=== PATIENT | male | born 1975 | race Caucasian/White ===

== ENCOUNTER 2020-07-13 18:01 | Emergency (ER) | payer OTHER ==
[~2020-07-13] VITALS: Wt 139.7 kg
[2020-07-13 18:55] LABS: BASO # 0.1 10*3/uL (0.0-0.1); BASO % 0.8 % (0.0-1.0); EOS # 0.4 10*3/uL (0.0-0.4); EOS % 4.1 % (1.0-4.0); HEMATOCRIT 43.5 % (42.0-52.0); LYMPH # 2.3 10*3/uL (1.3-4.4); LYMPH % 24.5 % (27.0-41.0); MEAN CELL VOLUME 77.1 fl (80.0-94.0); MEAN CORPUSCULAR HGB CONC 29.9 g/dl (33.0-37.0); MEAN PLATELET VOLUME 10.8 fl (9.6-12.3); MONO # 0.6 10*3/uL (0.1-1.0); MONO % 6.7 % (3.0-9.0); NEUT # 5.8 10*3/uL (2.3-7.9); NEUT % 63.4 % (47.0-73.0); PLATELET COUNT AUTOMATED 366 10*3/uL (130-400); RED BLOOD COUNT 5.64 10*6/uL (4.50-5.90); RED CELL DISTRI WIDTH 15.8 % (0-14.5); WHITE BLOOD COUNT 9.2 10*3/uL (4.8-10.8)
[2020-07-13 19:06] LABS: ACT PARTIAL THROMBO TIME 29.4 SECONDS (20.0-32.1)
[2020-07-13 19:12] LABS: ALBUMIN 3.1 gm/dl (3.1-4.5); CREATININE 2.69 mg/dL (0.70-1.30); POTASSIUM 3.2 mmol/L (3.5-5.1); TOTAL PROTEIN 7.2 gm/dL (6.4-8.2)
[2020-07-13 19:23] LABS: TROPONIN I 0.137 ng/ml (<0.045)
== END 2020-07-13 19:02 | disposition short-term general hospital (02) ==
LOC: ED 18:01
PROVIDERS: Emergency Medicine
DX: I21.9 Acute myocardial infarction, unspecified (principal)

== ENCOUNTER 2020-08-14 22:50 | Inpatient (IN) | payer OTHER ==
[~2020-08-14] VITALS: Ht 182.9 cm; Wt 151.1 kg
[2020-08-14 22:53] VITALS: BP 268/159
[2020-08-14] MEDS ORDERED: NITROSTAT0.4 MG SL (23:00)
[2020-08-14] MEDS ORDERED: CLOPIDOGREL75 MG PO (23:00)
[2020-08-14] MEDS ORDERED: NORVASC5 MG PO (23:00)
[2020-08-14] MEDS ORDERED: CARVEDILOL25 MG PO (23:00)
[2020-08-14 23:02] VITALS: BP 215/129
[2020-08-14 23:09] LABS: BASO # 0.1 10*3/uL (0.0-0.1); BASO % 1.2 % (0.0-1.0); EOS # 0.5 10*3/uL (0.0-0.4); EOS % 4.4 % (1.0-4.0); HEMATOCRIT 45.9 % (42.0-52.0); LYMPH # 3.5 10*3/uL (1.3-4.4); LYMPH % 28.6 % (27.0-41.0); MEAN CELL VOLUME 77.5 fl (80.0-94.0); MEAN CORPUSCULAR HGB 22.6 pg (27.0-31.0); MEAN CORPUSCULAR HGB CONC 29.2 g/dl (33.0-37.0); MEAN PLATELET VOLUME 10.3 fl (9.6-12.3); MONO # 0.7 10*3/uL (0.1-1.0); NEUT # 7.2 10*3/uL (2.3-7.9); NEUT % 59.2 % (47.0-73.0); PLATELET COUNT AUTOMATED 407 10*3/uL (130-400); RED BLOOD COUNT 5.92 10*6/uL (4.50-5.90); RED CELL DISTRI WIDTH 17.2 % (0-14.5); WHITE BLOOD COUNT 12.1 10*3/uL (4.8-10.8)
[2020-08-14 23:16] VITALS: BP 176/129
[2020-08-14 23:32] VITALS: BP 165/112
[2020-08-14 23:34] LABS: ALBUMIN 3.4 gm/dl (3.1-4.5); CREATININE 1.97 mg/dL (0.70-1.30); POTASSIUM 4.5 mmol/L (3.5-5.1); TOTAL PROTEIN 7.9 gm/dL (6.4-8.2)
[2020-08-14 23:38] LABS: TROPONIN I 0.234 ng/ml (<0.045)
[2020-08-15] VITALS (11 sets, daily range): BP systolic 129–168; BP diastolic 80–118
[2020-08-15 03:59] LABS: BASO # 0.1 10*3/uL (0.0-0.1); BASO % 0.6 % (0.0-1.0); EOS # 0.1 10*3/uL (0.0-0.4); EOS % 1.5 % (1.0-4.0); HEMATOCRIT 41.8 % (42.0-52.0); LYMPH # 0.8 10*3/uL (1.3-4.4); LYMPH % 8.8 % (27.0-41.0); MEAN CELL VOLUME 77.6 fl (80.0-94.0); MEAN CORPUSCULAR HGB 22.6 pg (27.0-31.0); MEAN CORPUSCULAR HGB CONC 29.2 g/dl (33.0-37.0); MEAN PLATELET VOLUME 10.3 fl (9.6-12.3); MONO # 0.4 10*3/uL (0.1-1.0); MONO % 3.8 % (3.0-9.0); NEUT # 8.2 10*3/uL (2.3-7.9); PLATELET COUNT AUTOMATED 301 10*3/uL (130-400); RED BLOOD COUNT 5.39 10*6/uL (4.50-5.90); RED CELL DISTRI WIDTH 16.7 % (0-14.5); WHITE BLOOD COUNT 9.6 10*3/uL (4.8-10.8)
[2020-08-15 04:19] LABS: ALBUMIN 3.1 gm/dl (3.1-4.5); CREATININE 1.8 mg/dL (0.70-1.30); POTASSIUM 4.6 mmol/L (3.5-5.1); TOTAL PROTEIN 7.1 gm/dL (6.4-8.2)
[2020-08-16] VITALS: BP 162/97
[2020-08-16 04:00] VITALS: BP 139/75
[2020-08-16 08:01] VITALS: BP 130/84
[2020-08-16 08:25] LABS: BASO % 0.4 % (0.0-1.0); EOS # 0.1 10*3/uL (0.0-0.4); HEMATOCRIT 40.4 % (42.0-52.0); LYMPH # 1.4 10*3/uL (1.3-4.4); LYMPH % 13.8 % (27.0-41.0); MEAN CELL VOLUME 78.3 fl (80.0-94.0); MEAN CORPUSCULAR HGB 23.1 pg (27.0-31.0); MEAN CORPUSCULAR HGB CONC 29.5 g/dl (33.0-37.0); MEAN PLATELET VOLUME 10.8 fl (9.6-12.3); MONO # 0.6 10*3/uL (0.1-1.0); MONO % 5.9 % (3.0-9.0); NEUT % 78.4 % (47.0-73.0); PLATELET COUNT AUTOMATED 296 10*3/uL (130-400); RED BLOOD COUNT 5.16 10*6/uL (4.50-5.90); RED CELL DISTRI WIDTH 17.1 % (0-14.5); WHITE BLOOD COUNT 10.2 10*3/uL (4.8-10.8)
[2020-08-16 08:36] LABS: ALBUMIN 2.8 gm/dl (3.1-4.5); CREATININE 1.61 mg/dL (0.70-1.30); POTASSIUM 4.3 mmol/L (3.5-5.1); TOTAL PROTEIN 6.4 gm/dL (6.4-8.2)
[2020-08-16 12:13] VITALS: BP 134/80
[2020-08-16 16:03] VITALS: BP 116/74
[2020-08-16 20:00] VITALS: BP 112/73
[2020-08-17] VITALS: BP 156/90
[2020-08-17 04:00] VITALS: BP 138/89
[2020-08-17 04:20] LABS: BASO % 0.3 % (0.0-1.0); EOS % 0.1 % (1.0-4.0); HEMATOCRIT 40.2 % (42.0-52.0); LYMPH # 1.5 10*3/uL (1.3-4.4); LYMPH % 12.4 % (27.0-41.0); MEAN CELL VOLUME 76.9 fl (80.0-94.0); MEAN CORPUSCULAR HGB 22.8 pg (27.0-31.0); MEAN CORPUSCULAR HGB CONC 29.6 g/dl (33.0-37.0); MEAN PLATELET VOLUME 10.5 fl (9.6-12.3); MONO # 0.7 10*3/uL (0.1-1.0); MONO % 5.7 % (3.0-9.0); NEUT # 9.6 10*3/uL (2.3-7.9); NEUT % 80.8 % (47.0-73.0); PLATELET COUNT AUTOMATED 309 10*3/uL (130-400); RED BLOOD COUNT 5.23 10*6/uL (4.50-5.90); RED CELL DISTRI WIDTH 16.6 % (0-14.5); WHITE BLOOD COUNT 11.8 10*3/uL (4.8-10.8)
[2020-08-17 04:36] LABS: ALKALINE PHOSPHATASE 49 U/L (45-117); BUN 28 mg/dl (7-24); CHLORIDE 108 mmol/L (98-107); CREATININE 1.42 mg/dL (0.70-1.30); LDH 155 U/L (87-241); POTASSIUM 4.3 mmol/L (3.5-5.1); SGOT/AST 19 IU/L (3-35); SGPT/ALT 35 U/L (12-78); SODIUM 142 mmol/L (136-145); TOTAL PROTEIN 6.8 gm/dL (6.4-8.2)
[2020-08-17 04:37] LABS: CPK 41 U/L (39-308)
[2020-08-17 08:00] VITALS: BP 151/88
[2020-08-17] MEDS ORDERED: LISINOPRIL2.5 MG PO (10:59)
[2020-08-17] MEDS ORDERED: FUROSEMIDE40 MG PO (10:59)
[2020-08-17] MEDS ORDERED: ATORVASTATIN CA80 M1 PO (10:59)
[2020-08-17] MEDS ORDERED: ASPIRIN ADULT L81 M2 PO (10:59)
[2020-08-17] MEDS ORDERED: DOXYCYCLINE100 M3 PO ×2 (10:59)
[2020-08-17] MEDS ORDERED: PREDNISONE10 MG PO ×2 (10:59)
[2020-08-17] MEDS ORDERED: COREG12.5 M1 PO (10:59)
== END 2020-08-17 12:50 | disposition home or self-care (01) | DRG 720 ==
LOC: ED 22:50 → ICCU 08-15 01:51 → EDHOLD 08-15 01:51 → ICCU 08-15 02:26
PROVIDERS: Family Medicine; Internal Medicine; ADMIT Student in an Organized Health Care Education/Training Program; ATTEND Student in an Organized Health Care Education/Training Program
PROC: 5A09357 Assistance with Respiratory Ventilation, Less than 24 Consecutive Hours, Continuous Positive Airway Pressure (ICD-10-PCS; principal; 2020-08-15)
DX: A41.9 Sepsis, unspecified organism (principal); I21.A1 Myocardial infarction type 2; J18.9 Pneumonia, unspecified organism; N17.0 Acute kidney failure with tubular necrosis; J96.01 Acute respiratory failure with hypoxia; E44.0 Moderate protein-calorie malnutrition; R73.9 Hyperglycemia, unspecified; R65.20 Severe sepsis without septic shock; D50.9 Iron deficiency anemia, unspecified; I25.10 Atherosclerotic heart disease of native coronary artery without angina pectoris; E83.41 Hypermagnesemia; I25.5 Ischemic cardiomyopathy; I16.1 Hypertensive emergency; T50.996A Underdosing of other drugs, medicaments and biological substances, initial encounter; D47.3 Essential (hemorrhagic) thrombocythemia; E87.8 Other disorders of electrolyte and fluid balance, not elsewhere classified; I50.23 Acute on chronic systolic (congestive) heart failure; Z20.828 Contact with and (suspected) exposure to other viral communicable diseases; E66.01 Morbid (severe) obesity due to excess calories; I13.0 Hypertensive heart and chronic kidney disease with heart failure and stage 1 through stage 4 chronic kidney disease, or unspecified chronic kidney disease; N18.9 Chronic kidney disease, unspecified; Z88.5 Allergy status to narcotic agent; Z85.89 Personal history of malignant neoplasm of other organs and systems; Z83.3 Family history of diabetes mellitus; Z82.49 Family history of ischemic heart disease and other diseases of the circulatory system; I25.2 Old myocardial infarction; Z79.899 Other long term (current) drug therapy; Z79.02 Long term (current) use of antithrombotics/antiplatelets; Z95.5 Presence of coronary angioplasty implant and graft; Y92.89 Other specified places as the place of occurrence of the external cause; Z91.14 Patient's other noncompliance with medication regimen; Z72.0 Tobacco use; Z71.6 Tobacco abuse counseling; Z68.41 Body mass index [BMI] 40.0-44.9, adult

== ENCOUNTER 2020-09-10 02:57 | Emergency (ER) | payer OTHER ==
[~2020-09-10] VITALS: Ht 182.8 cm; Wt 145.1 kg
[~2020-09-10 02:57] MED LIST: ASPIRIN ADULT L81 M2 PO; ATORVASTATIN CA80 M1 PO; CARVEDILOL25 MG PO; CLOPIDOGREL75 MG PO; COREG12.5 M1 PO; DOXYCYCLINE100 M3 PO; FUROSEMIDE40 MG PO; LISINOPRIL2.5 MG PO; NITROSTAT0.4 MG SL; NORVASC5 MG PO; PREDNISONE10 MG PO
[2020-09-10 03:30] LABS: BASO # 0.1 10*3/uL (0.0-0.1); BASO % 0.5 % (0.0-1.0); EOS # 0.1 10*3/uL (0.0-0.4); EOS % 0.9 % (1.0-4.0); HEMATOCRIT 44.4 % (42.0-52.0); LYMPH # 1.1 10*3/uL (1.3-4.4); LYMPH % 8.4 % (27.0-41.0); MEAN CORPUSCULAR HGB 22.6 pg (27.0-31.0); MEAN CORPUSCULAR HGB CONC 30.2 g/dl (33.0-37.0); MEAN PLATELET VOLUME 9.7 fl (9.6-12.3); MONO # 0.3 10*3/uL (0.1-1.0); MONO % 2.4 % (3.0-9.0); NEUT % 86.5 % (47.0-73.0); PLATELET COUNT AUTOMATED 337 10*3/uL (130-400); RED BLOOD COUNT 5.92 10*6/uL (4.50-5.90); RED CELL DISTRI WIDTH 17.7 % (0-14.5); WHITE BLOOD COUNT 12.7 10*3/uL (4.8-10.8)
[2020-09-10 03:46] LABS: ALBUMIN 3.4 gm/dl (3.1-4.5); ALKALINE PHOSPHATASE 62 U/L (45-117); BUN 22 mg/dl (7-24); CHLORIDE 108 mmol/L (98-107); CREATININE 1.45 mg/dL (0.70-1.30); SGOT/AST 20 IU/L (3-35); SGPT/ALT 27 U/L (12-78); SODIUM 139 mmol/L (136-145); TOTAL PROTEIN 7.5 gm/dL (6.4-8.2)
== END 2020-09-10 05:01 | disposition home or self-care (01) ==
LOC: ED 02:57
PROVIDERS: Internal Medicine
DX: I11.0 Hypertensive heart disease with heart failure (principal); I50.21 Acute systolic (congestive) heart failure; N17.9 Acute kidney failure, unspecified; R71.8 Other abnormality of red blood cells; Z88.5 Allergy status to narcotic agent; Z79.899 Other long term (current) drug therapy; Z79.82 Long term (current) use of aspirin; Z95.5 Presence of coronary angioplasty implant and graft; Z98.890 Other specified postprocedural states

== ENCOUNTER 2020-09-30 02:48 | Emergency (ER) | payer OTHER ==
[~2020-09-30] VITALS: Wt 140.6 kg
[2020-09-30 03:14] LABS: BASO # 0.1 10*3/uL (0.0-0.1); BASO % 0.7 % (0.0-1.0); EOS # 0.3 10*3/uL (0.0-0.4); EOS % 3.1 % (1.0-4.0); LYMPH # 1.7 10*3/uL (1.3-4.4); LYMPH % 17.1 % (27.0-41.0); MEAN CELL VOLUME 74.9 fl (80.0-94.0); MEAN CORPUSCULAR HGB 22.5 pg (27.0-31.0); MEAN PLATELET VOLUME 9.9 fl (9.6-12.3); MONO # 0.6 10*3/uL (0.1-1.0); MONO % 6.4 % (3.0-9.0); NEUT % 72.3 % (47.0-73.0); PLATELET COUNT AUTOMATED 330 10*3/uL (130-400); RED BLOOD COUNT 5.74 10*6/uL (4.50-5.90); RED CELL DISTRI WIDTH 16.7 % (0-14.5); WHITE BLOOD COUNT 9.7 10*3/uL (4.8-10.8)
[2020-09-30 03:36] LABS: ACT PARTIAL THROMBO TIME 29.3 SECONDS (20.0-32.1)
[2020-09-30 03:38] LABS: ALBUMIN 3.2 gm/dl (3.1-4.5); CREATININE 1.74 mg/dL (0.70-1.30); POTASSIUM 3.2 mmol/L (3.5-5.1); TOTAL PROTEIN 7.4 gm/dL (6.4-8.2)
[2020-09-30 03:41] LABS: TROPONIN I 0.261 ng/ml (<0.045)
== END 2020-09-30 05:58 | disposition short-term general hospital (02) ==
LOC: ED 02:48
PROVIDERS: Emergency Medicine
DX: I21.3 ST elevation (STEMI) myocardial infarction of unspecified site (principal); I50.9 Heart failure, unspecified; I11.0 Hypertensive heart disease with heart failure; I25.2 Old myocardial infarction; F17.200 Nicotine dependence, unspecified, uncomplicated; Z88.6 Allergy status to analgesic agent; Z79.899 Other long term (current) drug therapy

== ENCOUNTER 2020-11-21 20:57 | Inpatient (IN) | payer OTHER ==
[~2020-11-21] VITALS: Ht 182.8 cm; Wt 149.5 kg
[2020-11-21 21:10] LABS: BASO # 0.1 10*3/uL (0.0-0.1); EOS # 0.3 10*3/uL (0.0-0.4); EOS % 2.7 % (1.0-4.0); HEMATOCRIT 42.9 % (42.0-52.0); LYMPH # 2.2 10*3/uL (1.3-4.4); LYMPH % 18.3 % (27.0-41.0); MEAN CELL VOLUME 74.4 fl (80.0-94.0); MEAN CORPUSCULAR HGB 22.2 pg (27.0-31.0); MEAN CORPUSCULAR HGB CONC 29.8 g/dl (33.0-37.0); MEAN PLATELET VOLUME 10.1 fl (9.6-12.3); MONO # 0.8 10*3/uL (0.1-1.0); MONO % 6.6 % (3.0-9.0); NEUT # 8.6 10*3/uL (2.3-7.9); NEUT % 70.6 % (47.0-73.0); PLATELET COUNT AUTOMATED 325 10*3/uL (130-400); RED BLOOD COUNT 5.77 10*6/uL (4.50-5.90); RED CELL DISTRI WIDTH 17.2 % (0-14.5); WHITE BLOOD COUNT 12.2 10*3/uL (4.8-10.8)
[2020-11-21 21:14] VITALS: BP 143/95
[2020-11-21] MEDS ORDERED: LISINOPRIL40 MG PO (21:19)
[2020-11-21] MEDS ORDERED: METOPROLOL SUCC50 M1 PO (21:20)
[2020-11-21 21:21] LABS: ACT PARTIAL THROMBO TIME 29.2 SECONDS (20.0-32.1)
[2020-11-21] MEDS ORDERED: METFORMIN HYDR500 MG PO (21:21)
[2020-11-21] MEDS ORDERED: ASPIRIN CHEWABL81 MG PO (21:22)
[2020-11-21] MEDS ORDERED: VITAMIN D3125 MCG PO (21:23)
[2020-11-21] MEDS ORDERED: FISH OIL 1,0001 EAC2 PO (21:24)
[2020-11-21] MEDS ORDERED: QUETIAPINE FUM100 M2 PO (21:24)
[2020-11-21 21:28] LABS: ALBUMIN 3.5 gm/dl (3.1-4.5); CREATININE 1.77 mg/dL (0.70-1.30); TOTAL PROTEIN 7.9 gm/dL (6.4-8.2)
[2020-11-21 21:30] LABS: TROPONIN I 0.071 ng/ml (<0.045)
[2020-11-21 22:26] VITALS: BP 155/103
[2020-11-21 22:49] VITALS: BP 137/87
[2020-11-21 23:49] VITALS: BP 129/72
[2020-11-22 01:13] VITALS: BP 127/70
[2020-11-22] MEDS ORDERED: LIPITOR80 MG PO (01:17)
[2020-11-22] MEDS ORDERED: PROTONIX IV40 MG IV (01:20)
[2020-11-22] MEDS ORDERED: Clopidogrel75 MG PO (01:21)
[2020-11-22] MEDS ORDERED: LASIX40 MG PO (02:00)
[2020-11-22 06:12] LABS: BASO # 0.1 10*3/uL (0.0-0.1); BASO % 0.9 % (0.0-1.0); EOS # 0.3 10*3/uL (0.0-0.4); EOS % 3.7 % (1.0-4.0); LYMPH # 1.7 10*3/uL (1.3-4.4); LYMPH % 19.7 % (27.0-41.0); MEAN CELL VOLUME 76.2 fl (80.0-94.0); MEAN CORPUSCULAR HGB 22.5 pg (27.0-31.0); MEAN CORPUSCULAR HGB CONC 29.5 g/dl (33.0-37.0); MEAN PLATELET VOLUME 10.4 fl (9.6-12.3); MONO # 0.7 10*3/uL (0.1-1.0); MONO % 8.3 % (3.0-9.0); NEUT # 5.8 10*3/uL (2.3-7.9); NEUT % 66.6 % (47.0-73.0); PLATELET COUNT AUTOMATED 287 10*3/uL (130-400); RED BLOOD COUNT 5.25 10*6/uL (4.50-5.90); RED CELL DISTRI WIDTH 16.9 % (0-14.5); WHITE BLOOD COUNT 8.6 10*3/uL (4.8-10.8)
[2020-11-22 06:32] LABS: ALBUMIN 3.2 gm/dl (3.1-4.5); CREATININE 1.94 mg/dL (0.70-1.30); POTASSIUM 4.4 mmol/L (3.5-5.1); TOTAL PROTEIN 7.2 gm/dL (6.4-8.2)
[2020-11-22 06:34] LABS: FREE T4 0.84 ng/dl (0.76-1.46)
[2020-11-22 06:42] LABS: THYROID STIM HORMONE (HS) 1.91 uIU/ml (0.358-4.75)
[2020-11-22 07:40] LABS: FERRITIN 15.5 ng/mL (22.0-322.0); VITAMIN D, 25-HYDROXY 29.4 ng/mL (30-100)
[2020-11-22 08:00] VITALS: BP 125/77
[2020-11-22 12:00] VITALS: BP 128/61
[2020-11-22 16:00] VITALS: BP 108/40
[2020-11-22 20:00] VITALS: BP 116/65
[2020-11-23] VITALS: BP 90/76
[2020-11-23 03:42] LABS: BASO # 0.1 10*3/uL (0.0-0.1); BASO % 0.9 % (0.0-1.0); EOS # 0.3 10*3/uL (0.0-0.4); EOS % 4.2 % (1.0-4.0); HEMATOCRIT 40.1 % (42.0-52.0); LYMPH # 1.9 10*3/uL (1.3-4.4); LYMPH % 24.3 % (27.0-41.0); MEAN CELL VOLUME 76.7 fl (80.0-94.0); MEAN CORPUSCULAR HGB 22.4 pg (27.0-31.0); MEAN CORPUSCULAR HGB CONC 29.2 g/dl (33.0-37.0); MONO # 0.7 10*3/uL (0.1-1.0); MONO % 9.3 % (3.0-9.0); NEUT # 4.7 10*3/uL (2.3-7.9); NEUT % 60.4 % (47.0-73.0); PLATELET COUNT AUTOMATED 260 10*3/uL (130-400); RED BLOOD COUNT 5.23 10*6/uL (4.50-5.90); RED CELL DISTRI WIDTH 16.5 % (0-14.5); WHITE BLOOD COUNT 7.8 10*3/uL (4.8-10.8)
[2020-11-23 03:55] LABS: CREATININE 1.8 mg/dL (0.70-1.30); POTASSIUM 4.2 mmol/L (3.5-5.1)
[2020-11-23 08:00] VITALS: BP 116/47
[2020-11-23 12:00] VITALS: BP 145/78
[2020-11-23 16:00] VITALS: BP 100/63
[2020-11-23 20:00] VITALS: BP 117/66
[2020-11-24] VITALS: BP 114/64
[2020-11-24 06:12] LABS: ALBUMIN 3.2 gm/dl (3.1-4.5); CREATININE 1.65 mg/dL (0.70-1.30); POTASSIUM 4.1 mmol/L (3.5-5.1); TOTAL PROTEIN 7.2 gm/dL (6.4-8.2)
[2020-11-24 06:40] LABS: BASO # 0.1 10*3/uL (0.0-0.1); BASO % 0.8 % (0.0-1.0); EOS # 0.4 10*3/uL (0.0-0.4); EOS % 4.3 % (1.0-4.0); HEMATOCRIT 40.2 % (42.0-52.0); LYMPH # 1.7 10*3/uL (1.3-4.4); LYMPH % 18.5 % (27.0-41.0); MEAN CELL VOLUME 75.7 fl (80.0-94.0); MEAN CORPUSCULAR HGB 22.6 pg (27.0-31.0); MEAN CORPUSCULAR HGB CONC 29.9 g/dl (33.0-37.0); MEAN PLATELET VOLUME 10.6 fl (9.6-12.3); MONO # 0.7 10*3/uL (0.1-1.0); NEUT # 6.1 10*3/uL (2.3-7.9); NEUT % 67.6 % (47.0-73.0); PLATELET COUNT AUTOMATED 276 10*3/uL (130-400); RED BLOOD COUNT 5.31 10*6/uL (4.50-5.90); RED CELL DISTRI WIDTH 16.4 % (0-14.5); WHITE BLOOD COUNT 9.1 10*3/uL (4.8-10.8)
[2020-11-24 08:00] VITALS: BP 116/68
[2020-11-24 12:00] VITALS: BP 118/63
[2020-11-24 16:00] VITALS: BP 142/80
[2020-11-24 20:00] VITALS: BP 145/56
[2020-11-25] VITALS: BP 86/55
[2020-11-25 06:28] LABS: CREATININE 1.8 mg/dL (0.70-1.30); POTASSIUM 4.1 mmol/L (3.5-5.1)
[2020-11-25 08:00] VITALS: BP 102/60
[2020-11-25 10:10] LABS: CREATININE 2.06 mg/dL (0.70-1.30); POTASSIUM 4.2 mmol/L (3.5-5.1)
[2020-11-25 12:00] VITALS: BP 110/59
[2020-11-25 16:00] VITALS: BP 122/78
[2020-11-25 20:00] VITALS: BP 92/54
[2020-11-26] VITALS: BP 92/54
[2020-11-26 06:36] LABS: BASO # 0.1 10*3/uL (0.0-0.1); BASO % 0.9 % (0.0-1.0); EOS # 0.4 10*3/uL (0.0-0.4); EOS % 4.2 % (1.0-4.0); HEMATOCRIT 40.1 % (42.0-52.0); LYMPH % 20.6 % (27.0-41.0); MEAN CELL VOLUME 77.6 fl (80.0-94.0); MEAN CORPUSCULAR HGB 22.4 pg (27.0-31.0); MEAN CORPUSCULAR HGB CONC 28.9 g/dl (33.0-37.0); MEAN PLATELET VOLUME 10.4 fl (9.6-12.3); MONO # 0.9 10*3/uL (0.1-1.0); MONO % 9.4 % (3.0-9.0); NEUT # 6.2 10*3/uL (2.3-7.9); NEUT % 64.1 % (47.0-73.0); PLATELET COUNT AUTOMATED 278 10*3/uL (130-400); RED BLOOD COUNT 5.17 10*6/uL (4.50-5.90); RED CELL DISTRI WIDTH 16.7 % (0-14.5); WHITE BLOOD COUNT 9.7 10*3/uL (4.8-10.8)
[2020-11-26 06:54] LABS: CREATININE 1.85 mg/dL (0.70-1.30); POTASSIUM 4.8 mmol/L (3.5-5.1); TOTAL PROTEIN 7.2 gm/dL (6.4-8.2)
[2020-11-26 08:00] VITALS: BP 96/51
[2020-11-26 12:00] VITALS: BP 108/64
[2020-11-26 16:00] VITALS: BP 93/53
[2020-11-26 20:00] VITALS: BP 90/54
[2020-11-27] VITALS: BP 117/58
[2020-11-27] MEDS ORDERED: COMBIVENT RESPIM4 GM INH (01:53)
[2020-11-27 06:50] LABS: CREATININE 1.73 mg/dL (0.70-1.30); POTASSIUM 4.9 mmol/L (3.5-5.1)
[2020-11-27 08:00] VITALS: BP 128/88
[2020-11-27] MEDS ORDERED: Zestril,Prinivi40 MG PO (10:02)
[2020-11-27] MEDS ORDERED: IMDUR SA30 MG PO (10:02)
[2020-11-27] MEDS ORDERED: METOPROLOL SUC100 M1 PO (10:02)
[2020-11-27 12:00] VITALS: BP 134/80
== END 2020-11-27 15:02 | disposition short-term general hospital (02) | DRG 190 ==
LOC: ED 20:57 → EDHOLD 23:42 → 5E 23:42
PROVIDERS: Hospitalist; Internal Medicine; Registered Nurse; ADMIT Family Medicine; ATTEND Family Medicine
DX: I21.4 Non-ST elevation (NSTEMI) myocardial infarction (principal); D50.9 Iron deficiency anemia, unspecified; I50.22 Chronic systolic (congestive) heart failure; N18.32 Chronic kidney disease, stage 3b; F17.220 Nicotine dependence, chewing tobacco, uncomplicated; K21.9 Gastro-esophageal reflux disease without esophagitis; I25.5 Ischemic cardiomyopathy; E11.22 Type 2 diabetes mellitus with diabetic chronic kidney disease; I25.10 Atherosclerotic heart disease of native coronary artery without angina pectoris; I13.0 Hypertensive heart and chronic kidney disease with heart failure and stage 1 through stage 4 chronic kidney disease, or unspecified chronic kidney disease; E87.8 Other disorders of electrolyte and fluid balance, not elsewhere classified; E11.65 Type 2 diabetes mellitus with hyperglycemia; E44.0 Moderate protein-calorie malnutrition; J44.9 Chronic obstructive pulmonary disease, unspecified; E78.2 Mixed hyperlipidemia; Z95.5 Presence of coronary angioplasty implant and graft; Z91.19 Patient's noncompliance with other medical treatment and regimen; Z88.5 Allergy status to narcotic agent; Z82.49 Family history of ischemic heart disease and other diseases of the circulatory system; I25.2 Old myocardial infarction; Z83.3 Family history of diabetes mellitus; Z79.82 Long term (current) use of aspirin; Z79.84 Long term (current) use of oral hypoglycemic drugs

== ENCOUNTER 2021-09-28 03:31 | Inpatient (IN) | payer OTHER ==
[~2021-09-28 03:31] MED LIST changes: +ASPIRIN CHEWABL81 MG PO; +COMBIVENT RESPIM4 GM INH; +Clopidogrel75 MG PO; +FISH OIL 1,0001 EAC2 PO; +IMDUR SA30 MG PO; +LASIX40 MG PO; +LIPITOR80 MG PO; +LISINOPRIL40 MG PO; +METFORMIN HYDR500 MG PO; +METOPROLOL SUC100 M1 PO; +METOPROLOL SUCC50 M1 PO; +PROTONIX IV40 MG IV; +QUETIAPINE FUM100 M2 PO; +VITAMIN D3125 MCG PO; +Zestril,Prinivi40 MG PO
[2021-09-28 03:48] VITALS: BP 142/84
[2021-09-28 04:04] LABS: BASO # 0.1 10*3/uL (0.0-0.1); BASO % 0.7 % (0.0-1.0); EOS # 0.2 10*3/uL (0.0-0.4); EOS % 2.4 % (1.0-4.0); HEMATOCRIT 40.7 % (42.0-52.0); LYMPH # 1.8 10*3/uL (1.3-4.4); LYMPH % 19.8 % (27.0-41.0); MEAN CELL VOLUME 70.2 fl (80.0-94.0); MEAN CORPUSCULAR HGB 19.5 pg (27.0-31.0); MEAN CORPUSCULAR HGB CONC 27.8 g/dl (33.0-37.0); MEAN PLATELET VOLUME 9.2 fl (9.6-12.3); MONO % 10.7 % (3.0-9.0); NEUT % 65.6 % (47.0-73.0); PLATELET COUNT AUTOMATED 297 10*3/uL (130-400); RED CELL DISTRI WIDTH 20.5 % (0-14.5); WHITE BLOOD COUNT 9.1 10*3/uL (4.8-10.8)
[2021-09-28 04:15] VITALS: BP 143/89
[2021-09-28 04:20] LABS: ALBUMIN 3.3 gm/dl (3.1-4.5); CREATININE 1.61 mg/dL (0.70-1.30); POTASSIUM 3.8 mmol/L (3.5-5.1); TOTAL PROTEIN 7.5 gm/dL (6.4-8.2)
[2021-09-28 06:01] VITALS: BP 143/102
[2021-09-28 07:30] VITALS: BP 132/70
[2021-09-28] MEDS ORDERED: ATORVASTATIN CA20 M1 PO (08:09)
[2021-09-28] MEDS ORDERED: POTASSIUM CHLO10 ME5 PO (08:10)
[2021-09-28] MEDS ORDERED: METOPROLOL SUCC50 M1 PO (08:10)
[2021-09-28] MEDS ORDERED: FUROSEMIDE40 MG PO (08:10)
[2021-09-28 11:30] VITALS: BP 154/90
== END 2021-09-28 13:38 | disposition left against medical advice (07) | DRG 198 ==
LOC: ED 03:31 → EDHOLD 06:59
PROVIDERS: Internal Medicine; ADMIT Emergency Medicine; ATTEND Emergency Medicine
DX: R07.89 Other chest pain (principal); I13.0 Hypertensive heart and chronic kidney disease with heart failure and stage 1 through stage 4 chronic kidney disease, or unspecified chronic kidney disease; E11.22 Type 2 diabetes mellitus with diabetic chronic kidney disease; N18.31 Chronic kidney disease, stage 3a; E44.0 Moderate protein-calorie malnutrition; I50.9 Heart failure, unspecified; I25.5 Ischemic cardiomyopathy; F32.A Depression, unspecified; D50.9 Iron deficiency anemia, unspecified; E78.5 Hyperlipidemia, unspecified; F17.210 Nicotine dependence, cigarettes, uncomplicated; R77.8 Other specified abnormalities of plasma proteins; E87.8 Other disorders of electrolyte and fluid balance, not elsewhere classified; I34.0 Nonrheumatic mitral (valve) insufficiency; Z68.42 Body mass index [BMI] 45.0-49.9, adult; E66.01 Morbid (severe) obesity due to excess calories; K21.9 Gastro-esophageal reflux disease without esophagitis; I25.2 Old myocardial infarction; Z83.3 Family history of diabetes mellitus; Z82.49 Family history of ischemic heart disease and other diseases of the circulatory system; Z88.6 Allergy status to analgesic agent; Z86.73 Personal history of transient ischemic attack (TIA), and cerebral infarction without residual deficits; Z79.82 Long term (current) use of aspirin; Z79.899 Other long term (current) drug therapy; Z95.5 Presence of coronary angioplasty implant and graft; Z71.6 Tobacco abuse counseling

== ENCOUNTER 2022-01-19 23:06 | Inpatient (IN) | payer OTHER ==
[~2022-01-19] VITALS: Ht 182.8 cm; Wt 167.8 kg
[~2022-01-19 23:06] MED LIST changes: +ATORVASTATIN CA20 M1 PO; +Imdur SA60 MG PO; +NORVASC10 MG PO; +POTASSIUM CHLO10 ME5 PO
[2022-01-19 23:10] VITALS: BP 157/97
[2022-01-19 23:25] LABS: BASO # 0.1 10*3/uL (0.0-0.1); BASO % 0.9 % (0.0-1.0); EOS # 0.4 10*3/uL (0.0-0.4); EOS % 4.1 % (1.0-4.0); HEMATOCRIT 45.2 % (42.0-52.0); LYMPH # 1.7 10*3/uL (1.3-4.4); LYMPH % 17.4 % (27.0-41.0); MEAN CELL VOLUME 73.6 fl (80.0-94.0); MEAN CORPUSCULAR HGB 22.1 pg (27.0-31.0); MEAN CORPUSCULAR HGB CONC 30.1 g/dl (33.0-37.0); MEAN PLATELET VOLUME 9.6 fl (9.6-12.3); MONO # 0.8 10*3/uL (0.1-1.0); MONO % 8.4 % (3.0-9.0); NEUT # 6.9 10*3/uL (2.3-7.9); NEUT % 68.7 % (47.0-73.0); PLATELET COUNT AUTOMATED 261 10*3/uL (130-400); RED BLOOD COUNT 6.14 10*6/uL (4.50-5.90)
[2022-01-19 23:42] LABS: CREATININE 1.57 mg/dL (0.70-1.30); POTASSIUM 3.6 mmol/L (3.5-5.1); TOTAL PROTEIN 7.2 gm/dL (6.4-8.2)
[2022-01-20 02:40] VITALS: BP 144/87
[2022-01-20 05:46] LABS: CREATININE 1.73 mg/dL (0.70-1.30); POTASSIUM 4.2 mmol/L (3.5-5.1); TOTAL PROTEIN 6.9 gm/dL (6.4-8.2)
[2022-01-20 05:52] LABS: THYROID STIM HORMONE (HS) 0.882 uIU/ml (0.358-4.75)
[2022-01-20 05:59] LABS: BASO # 0.1 10*3/uL (0.0-0.1); BASO % 1.1 % (0.0-1.0); EOS # 0.5 10*3/uL (0.0-0.4); EOS % 4.7 % (1.0-4.0); HEMATOCRIT 47.1 % (42.0-52.0); LYMPH # 1.6 10*3/uL (1.3-4.4); LYMPH % 17.2 % (27.0-41.0); MEAN CELL VOLUME 75.5 fl (80.0-94.0); MEAN CORPUSCULAR HGB 22.3 pg (27.0-31.0); MEAN CORPUSCULAR HGB CONC 29.5 g/dl (33.0-37.0); MEAN PLATELET VOLUME 10.2 fl (9.6-12.3); MONO # 0.7 10*3/uL (0.1-1.0); MONO % 7.5 % (3.0-9.0); NEUT # 6.5 10*3/uL (2.3-7.9); NEUT % 68.8 % (47.0-73.0); PLATELET COUNT AUTOMATED 246 10*3/uL (130-400); RED BLOOD COUNT 6.24 10*6/uL (4.50-5.90); RED CELL DISTRI WIDTH 21.2 % (0-14.5); WHITE BLOOD COUNT 9.5 10*3/uL (4.8-10.8)
[2022-01-20 06:03] LABS: ACT PARTIAL THROMBO TIME 30.8 SECONDS (20.0-32.1)
[2022-01-20 07:01] LABS: VITAMIN D, 25-HYDROXY 17.3 ng/mL (30-100)
[2022-01-20 08:00] VITALS: BP 128/74
[2022-01-20] MEDS ORDERED: COL-RITE100 M1 PO (11:18)
[2022-01-20] MEDS ORDERED: NITROGLYCERIN0.4 MG SL (11:19)
[2022-01-20] MEDS ORDERED: GLYBURIDE2.5 MG PO (11:22)
[2022-01-20] MEDS ORDERED: AMITRIPTYLINE H10 M1 PO (11:25)
[2022-01-20] MEDS ORDERED: METOPROLOL SUCC25 M2 PO (11:27)
[2022-01-20] MEDS ORDERED: TRAD5TAB1 PO (11:32)
[2022-01-20 12:00] VITALS: BP 138/90
[2022-01-20 16:00] VITALS: BP 130/86
[2022-01-20 20:00] VITALS: BP 132/86
[2022-01-21] VITALS: BP 130/82
[2022-01-21 06:07] LABS: CREATININE 1.69 mg/dL (0.70-1.30); POTASSIUM 4.2 mmol/L (3.5-5.1)
[2022-01-21 06:35] LABS: BASO # 0.1 10*3/uL (0.0-0.1); BASO % 0.9 % (0.0-1.0); EOS # 0.4 10*3/uL (0.0-0.4); EOS % 4.3 % (1.0-4.0); HEMATOCRIT 47.3 % (42.0-52.0); LYMPH # 1.4 10*3/uL (1.3-4.4); LYMPH % 17.5 % (27.0-41.0); MEAN CELL VOLUME 75.8 fl (80.0-94.0); MEAN CORPUSCULAR HGB 22.4 pg (27.0-31.0); MEAN CORPUSCULAR HGB CONC 29.6 g/dl (33.0-37.0); MEAN PLATELET VOLUME 10.6 fl (9.6-12.3); MONO # 0.6 10*3/uL (0.1-1.0); MONO % 7.8 % (3.0-9.0); NEUT # 5.6 10*3/uL (2.3-7.9); NEUT % 68.9 % (47.0-73.0); PLATELET COUNT AUTOMATED 253 10*3/uL (130-400); RED BLOOD COUNT 6.24 10*6/uL (4.50-5.90); RED CELL DISTRI WIDTH 20.9 % (0-14.5); WHITE BLOOD COUNT 8.1 10*3/uL (4.8-10.8)
[2022-01-21 08:00] VITALS: BP 148/90
[2022-01-21 12:00] VITALS: BP 132/64
[2022-01-21 16:00] VITALS: BP 137/62
[2022-01-21 20:00] VITALS: BP 142/85
[2022-01-22] VITALS: BP 149/81
[2022-01-22 06:34] LABS: CREATININE 1.6 mg/dL (0.70-1.30); POTASSIUM 4.3 mmol/L (3.5-5.1)
[2022-01-22 06:59] LABS: BASO # 0.1 10*3/uL (0.0-0.1); BASO % 0.8 % (0.0-1.0); EOS # 0.3 10*3/uL (0.0-0.4); EOS % 4.5 % (1.0-4.0); HEMATOCRIT 47.5 % (42.0-52.0); LYMPH # 1.3 10*3/uL (1.3-4.4); LYMPH % 17.2 % (27.0-41.0); MEAN CELL VOLUME 76.7 fl (80.0-94.0); MEAN CORPUSCULAR HGB 22.1 pg (27.0-31.0); MEAN CORPUSCULAR HGB CONC 28.8 g/dl (33.0-37.0); MEAN PLATELET VOLUME 10.3 fl (9.6-12.3); MONO # 0.6 10*3/uL (0.1-1.0); MONO % 7.9 % (3.0-9.0); NEUT # 5.2 10*3/uL (2.3-7.9); NEUT % 69.3 % (47.0-73.0); PLATELET COUNT AUTOMATED 250 10*3/uL (130-400); RED BLOOD COUNT 6.19 10*6/uL (4.50-5.90); RED CELL DISTRI WIDTH 20.4 % (0-14.5); WHITE BLOOD COUNT 7.5 10*3/uL (4.8-10.8)
[2022-01-22 08:00] VITALS: BP 134/70
[2022-01-22 12:00] VITALS: BP 109/50
[2022-01-22] MEDS ORDERED: BUMETANIDE2 MG PO (15:12)
== END 2022-01-22 15:50 | disposition home or self-care (01) | DRG 194 ==
LOC: ED 23:06 → 5E 01-20 02:10 → EDHOLD 01-20 02:10 → 5E 01-20 02:24
PROVIDERS: Family Medicine; Hospitalist; Internal Medicine; ADMIT Emergency Medicine; ATTEND Emergency Medicine
DX: I13.0 Hypertensive heart and chronic kidney disease with heart failure and stage 1 through stage 4 chronic kidney disease, or unspecified chronic kidney disease (principal); E11.22 Type 2 diabetes mellitus with diabetic chronic kidney disease; N18.31 Chronic kidney disease, stage 3a; E11.65 Type 2 diabetes mellitus with hyperglycemia; N17.0 Acute kidney failure with tubular necrosis; I50.23 Acute on chronic systolic (congestive) heart failure; D50.9 Iron deficiency anemia, unspecified; E55.9 Vitamin D deficiency, unspecified; I25.10 Atherosclerotic heart disease of native coronary artery without angina pectoris; K21.9 Gastro-esophageal reflux disease without esophagitis; E78.5 Hyperlipidemia, unspecified; G47.33 Obstructive sleep apnea (adult) (pediatric); J44.9 Chronic obstructive pulmonary disease, unspecified; F17.210 Nicotine dependence, cigarettes, uncomplicated; Z79.4 Long term (current) use of insulin; Z82.49 Family history of ischemic heart disease and other diseases of the circulatory system; Z95.5 Presence of coronary angioplasty implant and graft; Z83.3 Family history of diabetes mellitus; Z86.73 Personal history of transient ischemic attack (TIA), and cerebral infarction without residual deficits; Z88.5 Allergy status to narcotic agent; Z79.82 Long term (current) use of aspirin; Z79.899 Other long term (current) drug therapy; J81.1 Chronic pulmonary edema

== ENCOUNTER 2022-01-27 01:41 | Inpatient (IN) | payer OTHER ==
[~2022-01-27] VITALS: Ht 170.2 cm; Wt 156.7 kg
[~2022-01-27 01:41] MED LIST changes: +AMITRIPTYLINE H10 M1 PO; +BUMETANIDE2 MG PO; +COL-RITE100 M1 PO; +GLYBURIDE2.5 MG PO; +METOPROLOL SUCC25 M2 PO; +NITROGLYCERIN0.4 MG SL; +TRAD5TAB1 PO
[2022-01-27 01:47] VITALS: BP 192/111
[2022-01-27 02:00] LABS: BASO # 0.1 10*3/uL (0.0-0.1); BASO % 0.7 % (0.0-1.0); EOS # 0.4 10*3/uL (0.0-0.4); EOS % 4.1 % (1.0-4.0); HEMATOCRIT 44.4 % (42.0-52.0); LYMPH # 1.5 10*3/uL (1.3-4.4); LYMPH % 17.2 % (27.0-41.0); MEAN CELL VOLUME 74.1 fl (80.0-94.0); MEAN CORPUSCULAR HGB 22.7 pg (27.0-31.0); MEAN CORPUSCULAR HGB CONC 30.6 g/dl (33.0-37.0); MEAN PLATELET VOLUME 9.6 fl (9.6-12.3); MONO # 0.6 10*3/uL (0.1-1.0); MONO % 7.2 % (3.0-9.0); NEUT # 6.2 10*3/uL (2.3-7.9); NEUT % 70.5 % (47.0-73.0); PLATELET COUNT AUTOMATED 266 10*3/uL (130-400); RED BLOOD COUNT 5.99 10*6/uL (4.50-5.90); RED CELL DISTRI WIDTH 20.2 % (0-14.5); WHITE BLOOD COUNT 8.7 10*3/uL (4.8-10.8)
[2022-01-27 02:10] LABS: ACT PARTIAL THROMBO TIME 30.5 SECONDS (20.0-32.1)
[2022-01-27 02:20] LABS: CREATININE 1.55 mg/dL (0.70-1.30); TOTAL PROTEIN 7.2 gm/dL (6.4-8.2)
[2022-01-27 05:06] VITALS: BP 176/95
[2022-01-27 12:00] VITALS: BP 152/104
[2022-01-27 16:00] VITALS: BP 130/100
[2022-01-27 17:00] VITALS: BP 130/94
[2022-01-27 20:00] VITALS: BP 148/59
[2022-01-28] VITALS (7 sets, daily range): BP systolic 130–172; BP diastolic 63–103
[2022-01-28 06:04] LABS: BASO # 0.1 10*3/uL (0.0-0.1); BASO % 0.9 % (0.0-1.0); EOS # 0.4 10*3/uL (0.0-0.4); EOS % 4.6 % (1.0-4.0); HEMATOCRIT 45.7 % (42.0-52.0); LYMPH # 1.3 10*3/uL (1.3-4.4); LYMPH % 15.9 % (27.0-41.0); MEAN CELL VOLUME 75.7 fl (80.0-94.0); MEAN CORPUSCULAR HGB 22.8 pg (27.0-31.0); MEAN CORPUSCULAR HGB CONC 30.2 g/dl (33.0-37.0); MEAN PLATELET VOLUME 10.5 fl (9.6-12.3); MONO # 0.7 10*3/uL (0.1-1.0); MONO % 8.6 % (3.0-9.0); NEUT # 5.5 10*3/uL (2.3-7.9); NEUT % 69.6 % (47.0-73.0); PLATELET COUNT AUTOMATED 252 10*3/uL (130-400); RED BLOOD COUNT 6.04 10*6/uL (4.50-5.90); RED CELL DISTRI WIDTH 20.5 % (0-14.5); WHITE BLOOD COUNT 7.9 10*3/uL (4.8-10.8)
[2022-01-28 06:18] LABS: BUN 21 mg/dl (7-24); CHLORIDE 105 mmol/L (98-107); CREATININE 1.45 mg/dL (0.70-1.30); POTASSIUM 4.1 mmol/L (3.5-5.1); SODIUM 139 mmol/L (136-145)
[2022-01-29] MEDS ORDERED: JARDIANCE10 MG PO (00:29)
== END 2022-01-29 00:03 | DRG 190 ==
LOC: ED 01:41 → EDHOLD 04:41 → 4E 04:41
PROVIDERS: Internal Medicine; ADMIT Internal Medicine; ATTEND Internal Medicine
PROC: 0HBRXZZ Excision of Toe Nail, External Approach (ICD-10-PCS; principal; 2022-01-27)
PROC: 0HBRXZZ Excision of Toe Nail, External Approach (ICD-10-PCS; 2022-01-27)
PROC: 0HBRXZZ Excision of Toe Nail, External Approach (ICD-10-PCS; 2022-01-27)
PROC: 0HBRXZZ Excision of Toe Nail, External Approach (ICD-10-PCS; 2022-01-27)
PROC: 0HBRXZZ Excision of Toe Nail, External Approach (ICD-10-PCS; 2022-01-27)
PROC: 0HBRXZZ Excision of Toe Nail, External Approach (ICD-10-PCS; 2022-01-27)
PROC: 0HBRXZZ Excision of Toe Nail, External Approach (ICD-10-PCS; 2022-01-27)
PROC: 0HBRXZZ Excision of Toe Nail, External Approach (ICD-10-PCS; 2022-01-27)
PROC: 0HBRXZZ Excision of Toe Nail, External Approach (ICD-10-PCS; 2022-01-27)
PROC: 0HBRXZZ Excision of Toe Nail, External Approach (ICD-10-PCS; 2022-01-27)
DX: I21.4 Non-ST elevation (NSTEMI) myocardial infarction (principal); I13.0 Hypertensive heart and chronic kidney disease with heart failure and stage 1 through stage 4 chronic kidney disease, or unspecified chronic kidney disease; E44.0 Moderate protein-calorie malnutrition; E11.22 Type 2 diabetes mellitus with diabetic chronic kidney disease; N18.31 Chronic kidney disease, stage 3a; Z20.822 Contact with and (suspected) exposure to COVID-19; D50.9 Iron deficiency anemia, unspecified; K21.9 Gastro-esophageal reflux disease without esophagitis; E78.2 Mixed hyperlipidemia; I25.10 Atherosclerotic heart disease of native coronary artery without angina pectoris; B35.1 Tinea unguium; F17.210 Nicotine dependence, cigarettes, uncomplicated; I25.5 Ischemic cardiomyopathy; G47.33 Obstructive sleep apnea (adult) (pediatric); E66.01 Morbid (severe) obesity due to excess calories; I50.43 Acute on chronic combined systolic (congestive) and diastolic (congestive) heart failure; D64.9 Anemia, unspecified; Z86.73 Personal history of transient ischemic attack (TIA), and cerebral infarction without residual deficits; Z76.5 Malingerer [conscious simulation]; Z71.3 Dietary counseling and surveillance; Z95.5 Presence of coronary angioplasty implant and graft; Z83.3 Family history of diabetes mellitus; Z82.49 Family history of ischemic heart disease and other diseases of the circulatory system; Z79.82 Long term (current) use of aspirin; Z79.899 Other long term (current) drug therapy; Z71.6 Tobacco abuse counseling; Z88.5 Allergy status to narcotic agent; Z68.43 Body mass index [BMI] 50.0-59.9, adult

== ENCOUNTER 2022-05-08 05:01 | Inpatient (IN) | payer OTHER ==
[~2022-05-08] VITALS: Ht 182.8 cm; Wt 151.5 kg
[2022-05-08] VITALS (7 sets, daily range): BP systolic 118–172; BP diastolic 77–120
[~2022-05-08 05:01] MED LIST changes: +JARDIANCE10 MG PO
[2022-05-08 05:27] LABS: ACT PARTIAL THROMBO TIME 31.2 SECONDS (20.0-32.1)
[2022-05-08 05:32] LABS: ALKALINE PHOSPHATASE 68 U/L (45-117); BUN 17 mg/dl (7-24); CHLORIDE 106 mmol/L (98-107); CREATININE 1.45 mg/dL (0.70-1.30); POTASSIUM 3.5 mmol/L (3.5-5.1); SGOT/AST 18 IU/L (3-35); SGPT/ALT 17 U/L (12-78); SODIUM 139 mmol/L (136-145); TOTAL PROTEIN 6.8 gm/dL (6.4-8.2)
[2022-05-08 06:02] LABS: BASO # 0.1 10*3/uL (0.0-0.1); BASO % 1.1 % (0.0-1.0); EOS # 0.5 10*3/uL (0.0-0.4); EOS % 5.2 % (1.0-4.0); HEMATOCRIT 45.5 % (42.0-52.0); LYMPH # 1.4 10*3/uL (1.3-4.4); LYMPH % 15.2 % (27.0-41.0); MEAN CELL VOLUME 74.6 fl (80.0-94.0); MEAN CORPUSCULAR HGB 22.8 pg (27.0-31.0); MEAN CORPUSCULAR HGB CONC 30.5 g/dl (33.0-37.0); MEAN PLATELET VOLUME 10.7 fl (9.6-12.3); MONO # 0.6 10*3/uL (0.1-1.0); MONO % 6.8 % (3.0-9.0); NEUT # 6.4 10*3/uL (2.3-7.9); NEUT % 70.5 % (47.0-73.0); PLATELET COUNT AUTOMATED 288 10*3/uL (130-400); WHITE BLOOD COUNT 9.1 10*3/uL (4.8-10.8)
== END 2022-05-08 11:35 | disposition left against medical advice (07) | DRG 190 ==
LOC: ED 05:01 → EDHOLD 07:35 → 4E 08:25
PROVIDERS: Emergency Medicine; ADMIT Internal Medicine; ATTEND Internal Medicine
DX: I21.4 Non-ST elevation (NSTEMI) myocardial infarction (principal); I25.119 Atherosclerotic heart disease of native coronary artery with unspecified angina pectoris; N18.30 Chronic kidney disease, stage 3 unspecified; D50.9 Iron deficiency anemia, unspecified; E78.5 Hyperlipidemia, unspecified; K21.9 Gastro-esophageal reflux disease without esophagitis; G47.30 Sleep apnea, unspecified; F17.200 Nicotine dependence, unspecified, uncomplicated; E66.01 Morbid (severe) obesity due to excess calories; Z53.29 Procedure and treatment not carried out because of patient's decision for other reasons; I12.9 Hypertensive chronic kidney disease with stage 1 through stage 4 chronic kidney disease, or unspecified chronic kidney disease; Z68.42 Body mass index [BMI] 45.0-49.9, adult; Z95.5 Presence of coronary angioplasty implant and graft; Z83.3 Family history of diabetes mellitus; Z91.19 Patient's noncompliance with other medical treatment and regimen; Z82.49 Family history of ischemic heart disease and other diseases of the circulatory system; Z80.51 Family history of malignant neoplasm of kidney; I25.2 Old myocardial infarction; E44.0 Moderate protein-calorie malnutrition; E83.41 Hypermagnesemia

== ENCOUNTER 2022-05-18 01:20 | Observation (INO) | payer OTHER ==
[2022-05-18] VITALS (8 sets, daily range): BP systolic 133–192; BP diastolic 87–125
[~2022-05-18] VITALS: Ht 182.9 cm; Wt 148.5 kg
[2022-05-18 02:06] LABS: BASO # 0.1 10*3/uL (0.0-0.1); EOS # 0.7 10*3/uL (0.0-0.4); EOS % 6.3 % (1.0-4.0); HEMATOCRIT 45.2 % (42.0-52.0); LYMPH # 1.3 10*3/uL (1.3-4.4); LYMPH % 11.3 % (27.0-41.0); MEAN CELL VOLUME 75.8 fl (80.0-94.0); MEAN CORPUSCULAR HGB 22.7 pg (27.0-31.0); MEAN CORPUSCULAR HGB CONC 29.9 g/dl (33.0-37.0); MONO # 0.5 10*3/uL (0.1-1.0); MONO % 4.5 % (3.0-9.0); NEUT # 8.8 10*3/uL (2.3-7.9); NEUT % 76.2 % (47.0-73.0); NUCLEATED RED BLOOD CELL 0.2 % (0.0-0.0); PLATELET COUNT AUTOMATED 314 10*3/uL (130-400); RED BLOOD COUNT 5.96 10*6/uL (4.50-5.90); RED CELL DISTRI WIDTH 19.4 % (0-14.5); WHITE BLOOD COUNT 11.6 10*3/uL (4.8-10.8)
[2022-05-18 02:21] LABS: CREATININE 1.6 mg/dL (0.70-1.30); POTASSIUM 3.3 mmol/L (3.5-5.1); TOTAL PROTEIN 6.9 gm/dL (6.4-8.2)
[2022-05-18 04:40] LABS: BILIRUBIN 1+ (Negative); BLOOD Negative (Negative); CLARITY Clear (Clear); COLOR Dark Yellow (Yellow); GLUCOSE Trace (Negative); KETONE Trace (Negative); LEUKO ESTERASE Trace (Negative); NITRITE Negative (Negative); PH 6.5 (4.5-8.0); SPECIFIC GRAVITY >= 1.030 (1.001-1.030)
[2022-05-18 04:47] LABS: URINE AMPHETAMINES < 1000 (1000ng/ml); URINE BARBITURATES < 200 (200ng/ml); URINE BENZODIAZEPINES < 200 (200ng/ml); URINE CANNABINOIDS (THC) < 50 (50ng/ml); URINE COCAINE < 300 (300ng/ml); URINE METHADONE < 300 (300ng/ml); URINE OPIATES < 300 (300ng/ml)
[2022-05-18 04:50] LABS: URINE PHENCYCLIDINE < 25 (25ng/ml)
[2022-05-18 04:59] LABS: BACTERIA 1+; MUCOUS 1+; RBC 0-2 rbc/hpf (0-2)
[2022-05-18] MEDS ORDERED: STIOLTO RESPIMAT4 GM INH (11:47)
[2022-05-18] MEDS ORDERED: GABAPENTIN100 M2 PO (11:48)
[2022-05-18] MEDS ORDERED: QUETIAPINE FUM100 M3 PO (11:48)
[2022-05-19] VITALS: BP 170/98
[2022-05-19 01:30] VITALS: BP 160/86
[2022-05-19 02:30] VITALS: BP 158/82
[2022-05-19 06:29] LABS: BASO # 0.1 10*3/uL (0.0-0.1); BASO % 1.1 % (0.0-1.0); EOS # 0.6 10*3/uL (0.0-0.4); EOS % 6.9 % (1.0-4.0); HEMATOCRIT 44.2 % (42.0-52.0); LYMPH # 1.2 10*3/uL (1.3-4.4); LYMPH % 12.9 % (27.0-41.0); MEAN CELL VOLUME 76.9 fl (80.0-94.0); MEAN CORPUSCULAR HGB 22.4 pg (27.0-31.0); MEAN CORPUSCULAR HGB CONC 29.2 g/dl (33.0-37.0); MONO # 0.6 10*3/uL (0.1-1.0); MONO % 6.3 % (3.0-9.0); NEUT # 6.6 10*3/uL (2.3-7.9); NEUT % 72.1 % (47.0-73.0); PLATELET COUNT AUTOMATED 281 10*3/uL (130-400); RED BLOOD COUNT 5.75 10*6/uL (4.50-5.90); RED CELL DISTRI WIDTH 19.6 % (0-14.5); WHITE BLOOD COUNT 9.2 10*3/uL (4.8-10.8)
[2022-05-19 06:43] LABS: BUN 21 mg/dl (7-24); CHLORIDE 103 mmol/L (98-107); POTASSIUM 3.9 mmol/L (3.5-5.1); SODIUM 141 mmol/L (136-145); TOTAL PROTEIN 6.7 gm/dL (6.4-8.2)
[2022-05-19 06:49] LABS: ALKALINE PHOSPHATASE 69 U/L (45-117); CREATININE 1.48 mg/dL (0.70-1.30); SGOT/AST 19 IU/L (3-35); SGPT/ALT 15 U/L (12-78); THYROID STIM HORMONE (HS) 0.452 uIU/ml (0.358-4.75)
[2022-05-19 06:51] LABS: ACT PARTIAL THROMBO TIME 27.3 SECONDS (20.0-32.1)
[2022-05-19 08:00] VITALS: BP 146/86
[2022-05-19] MEDS ORDERED: JARDIANCE10 MG PO (11:29)
[2022-05-19] MEDS ORDERED: QUETIAPINE FUM100 M3 PO (11:29)
[2022-05-19] MEDS ORDERED: GLYBURIDE2.5 MG PO (11:29)
[2022-05-19 12:00] VITALS: BP 149/81
[2022-05-19 12:05] VITALS: BP 144/75
== END 2022-05-19 13:05 | disposition home or self-care (01) ==
LOC: ED 01:20 → 4E 05:26 → EDHOLD 05:26 → 4E 05:26
PROVIDERS: Emergency Medicine; Internal Medicine; ADMIT Student in an Organized Health Care Education/Training Program; ATTEND Student in an Organized Health Care Education/Training Program
DX: I21.4 Non-ST elevation (NSTEMI) myocardial infarction (principal); E44.0 Moderate protein-calorie malnutrition; G47.30 Sleep apnea, unspecified; I25.118 Atherosclerotic heart disease of native coronary artery with other forms of angina pectoris; N18.31 Chronic kidney disease, stage 3a; Z91.19 Patient's noncompliance with other medical treatment and regimen; I11.0 Hypertensive heart disease with heart failure; I50.33 Acute on chronic diastolic (congestive) heart failure; E78.5 Hyperlipidemia, unspecified; R82.2 Biliuria; E87.6 Hypokalemia; D50.9 Iron deficiency anemia, unspecified; D72.829 Elevated white blood cell count, unspecified; Z79.82 Long term (current) use of aspirin; Z79.899 Other long term (current) drug therapy

== ENCOUNTER 2022-08-17 21:06 | Emergency (ER) | payer OTHER ==
[~2022-08-17] VITALS: Ht 182.8 cm; Wt 148.9 kg
[~2022-08-17 21:06] MED LIST changes: +GABAPENTIN100 M2 PO; +QUETIAPINE FUM100 M3 PO; +STIOLTO RESPIMAT4 GM INH
[2022-08-17 21:40] LABS: BASO # 0.1 10*3/uL (0.0-0.1); EOS # 0.4 10*3/uL (0.0-0.4); EOS % 3.7 % (1.0-4.0); HEMATOCRIT 44.4 % (42.0-52.0); LYMPH # 1.9 10*3/uL (1.3-4.4); LYMPH % 16.6 % (27.0-41.0); MEAN CELL VOLUME 73.9 fl (80.0-94.0); MEAN CORPUSCULAR HGB 21.8 pg (27.0-31.0); MEAN CORPUSCULAR HGB CONC 29.5 g/dl (33.0-37.0); MEAN PLATELET VOLUME 10.6 fl (9.6-12.3); NEUT # 7.8 10*3/uL (2.3-7.9); NEUT % 69.3 % (47.0-73.0); PLATELET COUNT AUTOMATED 352 10*3/uL (130-400); RED BLOOD COUNT 6.01 10*6/uL (4.50-5.90); RED CELL DISTRI WIDTH 19.6 % (0-14.5); WHITE BLOOD COUNT 11.2 10*3/uL (4.8-10.8)
[2022-08-17 22:00] LABS: CREATININE 1.87 mg/dL (0.70-1.30); POTASSIUM 3.2 mmol/L (3.5-5.1); TOTAL PROTEIN 7.2 gm/dL (6.4-8.2)
[2022-08-17 22:02] LABS: ACT PARTIAL THROMBO TIME 29.4 SECONDS (20.0-32.1)
== END 2022-08-18 00:23 | disposition left against medical advice (07) ==
LOC: ED 21:06
PROVIDERS: Emergency Medicine
DX: E87.6 Hypokalemia (principal); N17.9 Acute kidney failure, unspecified; R07.9 Chest pain, unspecified; I25.10 Atherosclerotic heart disease of native coronary artery without angina pectoris; I13.0 Hypertensive heart and chronic kidney disease with heart failure and stage 1 through stage 4 chronic kidney disease, or unspecified chronic kidney disease; E11.22 Type 2 diabetes mellitus with diabetic chronic kidney disease; N18.30 Chronic kidney disease, stage 3 unspecified; E78.5 Hyperlipidemia, unspecified; I25.2 Old myocardial infarction; K21.9 Gastro-esophageal reflux disease without esophagitis; Z79.899 Other long term (current) drug therapy; Z79.82 Long term (current) use of aspirin; Z98.890 Other specified postprocedural states; Z87.891 Personal history of nicotine dependence

== ENCOUNTER 2023-10-25 02:32 | Inpatient (IN) | payer OTHER ==
[2023-10-25 02:32] VITALS: BP 160/100
[2023-10-25 03:21] LABS: BASO # 0.1 10*3/uL (0.0-0.1); BASO % 1.1 % (0.0-1.0); EOS # 0.3 10*3/uL (0.0-0.4); EOS % 4.6 % (1.0-4.0); HEMATOCRIT 40.5 % (42.0-52.0); LYMPH # 1.1 10*3/uL (1.3-4.4); LYMPH % 17.6 % (27.0-41.0); MEAN CORPUSCULAR HGB 21.4 pg (27.0-31.0); MEAN CORPUSCULAR HGB CONC 28.1 g/dl (33.0-37.0); MEAN PLATELET VOLUME 9.6 fl (9.6-12.3); MONO # 0.7 10*3/uL (0.1-1.0); MONO % 10.4 % (3.0-9.0); NEUT # 4.1 10*3/uL (2.3-7.9); PLATELET COUNT AUTOMATED 304 10*3/uL (130-400); RED BLOOD COUNT 5.33 10*6/uL (4.50-5.90); RED CELL DISTRI WIDTH 21.2 % (0-14.5); WHITE BLOOD COUNT 6.3 10*3/uL (4.8-10.8)
[2023-10-25 03:32] LABS: ACT PARTIAL THROMBO TIME 31.2 SECONDS (20.0-32.1)
[2023-10-25 03:41] LABS: POTASSIUM 4.1 mmol/L (3.4-5.1)
== END 2023-10-25 10:56 | disposition left against medical advice (07) | DRG 190 ==
LOC: ED 02:32 → EDHOLD 05:41
PROVIDERS: Internal Medicine; ADMIT Emergency Medicine; ATTEND Emergency Medicine
DX: I21.4 Non-ST elevation (NSTEMI) myocardial infarction (principal); I13.0 Hypertensive heart and chronic kidney disease with heart failure and stage 1 through stage 4 chronic kidney disease, or unspecified chronic kidney disease; E11.22 Type 2 diabetes mellitus with diabetic chronic kidney disease; I50.9 Heart failure, unspecified; F17.210 Nicotine dependence, cigarettes, uncomplicated; E78.5 Hyperlipidemia, unspecified; K21.9 Gastro-esophageal reflux disease without esophagitis; E11.65 Type 2 diabetes mellitus with hyperglycemia; D50.9 Iron deficiency anemia, unspecified; N18.32 Chronic kidney disease, stage 3b; G47.30 Sleep apnea, unspecified; I25.118 Atherosclerotic heart disease of native coronary artery with other forms of angina pectoris; I25.5 Ischemic cardiomyopathy; Z95.5 Presence of coronary angioplasty implant and graft; Z71.6 Tobacco abuse counseling; Z86.73 Personal history of transient ischemic attack (TIA), and cerebral infarction without residual deficits; Z79.82 Long term (current) use of aspirin; Z79.899 Other long term (current) drug therapy

== ENCOUNTER 2023-11-22 04:43 | Emergency (ER) | payer OTHER ==
[~2023-11-22] VITALS: Ht 182.8 cm; Wt 142.9 kg
[~2023-11-22 04:43] MED LIST changes: +CRESTOR5 M1 PO; +ENTRESTO 49 MG1 EACH PO; +FUROSEMIDE20 M1 PO; +POTASSIUM CHLO20 ME3 PO; +TOPROL XL50 M1 PO
[2023-11-22] MEDS ORDERED: ACETAMINOPHEN 325 MG TAB PO ONE (05:40)
[2023-11-22 06:26] LABS: BASO # 0.1 10*3/uL (0.0-0.1); EOS # 0.4 10*3/uL (0.0-0.4); HEMATOCRIT 44.6 % (42.0-52.0); LYMPH # 1.2 10*3/uL (1.3-4.4); LYMPH % 15.2 % (27.0-41.0); MEAN CORPUSCULAR HGB 21.5 pg (27.0-31.0); MEAN CORPUSCULAR HGB CONC 28.7 g/dl (33.0-37.0); MEAN PLATELET VOLUME 10.3 fl (9.6-12.3); MONO # 0.6 10*3/uL (0.1-1.0); MONO % 7.9 % (3.0-9.0); NEUT # 5.4 10*3/uL (2.3-7.9); NEUT % 70.5 % (47.0-73.0); PLATELET COUNT AUTOMATED 315 10*3/uL (130-400); RED BLOOD COUNT 5.95 10*6/uL (4.50-5.90); RED CELL DISTRI WIDTH 19.6 % (0-14.5); WHITE BLOOD COUNT 7.6 10*3/uL (4.8-10.8)
[2023-11-22 06:47] LABS: POTASSIUM 3.7 mmol/L (3.4-5.1); TOTAL PROTEIN 7.2 gm/dL (6.0-8.0)
[2023-11-22] MEDS ORDERED: HEPARIN SODIUM 250 ML IV SCH (08:20)
== END 2023-11-22 09:50 | disposition short-term general hospital (02) ==
LOC: ED 04:43
PROVIDERS: Emergency Medicine
DX: I21.4 Non-ST elevation (NSTEMI) myocardial infarction (principal); R51.9 Headache, unspecified; R55 Syncope and collapse; R60.0 Localized edema; E66.9 Obesity, unspecified; I11.0 Hypertensive heart disease with heart failure; I50.9 Heart failure, unspecified; I25.10 Atherosclerotic heart disease of native coronary artery without angina pectoris; E11.9 Type 2 diabetes mellitus without complications; K21.9 Gastro-esophageal reflux disease without esophagitis; E78.5 Hyperlipidemia, unspecified; I25.2 Old myocardial infarction; F17.210 Nicotine dependence, cigarettes, uncomplicated; Z79.899 Other long term (current) drug therapy; Z79.82 Long term (current) use of aspirin; Z68.30 Body mass index [BMI] 30.0-30.9, adult; Z98.890 Other specified postprocedural states; Z95.5 Presence of coronary angioplasty implant and graft

== ENCOUNTER 2024-01-04 03:33 | Emergency (ER) | payer OTHER ==
[~2024-01-04] VITALS: Ht 182.8 cm
[2024-01-04 04:37] LABS: BASO # 0.1 10*3/uL (0.0-0.1); BASO % 0.8 % (0.0-1.0); EOS # 0.5 10*3/uL (0.0-0.4); EOS % 5.3 % (1.0-4.0); HEMATOCRIT 42.4 % (42.0-52.0); LYMPH # 1.3 10*3/uL (1.3-4.4); LYMPH % 13.6 % (27.0-41.0); MEAN CELL VOLUME 74.6 fl (80.0-94.0); MEAN CORPUSCULAR HGB 21.1 pg (27.0-31.0); MEAN CORPUSCULAR HGB CONC 28.3 g/dl (33.0-37.0); MEAN PLATELET VOLUME 9.9 fl (9.6-12.3); MONO # 0.4 10*3/uL (0.1-1.0); MONO % 4.3 % (3.0-9.0); NEUT # 7.1 10*3/uL (2.3-7.9); NEUT % 75.8 % (47.0-73.0); PLATELET COUNT AUTOMATED 308 10*3/uL (130-400); RED BLOOD COUNT 5.68 10*6/uL (4.50-5.90); RED CELL DISTRI WIDTH 19.3 % (0-14.5); WHITE BLOOD COUNT 9.4 10*3/uL (4.8-10.8)
[2024-01-04 04:58] LABS: POTASSIUM 3.1 mmol/L (3.4-5.1); TOTAL PROTEIN 7.1 gm/dL (6.0-8.0)
[2024-01-04] MEDS ORDERED: MIRALAX POWDER17 G1 PO (05:02)
[2024-01-04] MEDS ORDERED: CITROMA296 ML PO (05:05)
[2024-01-04] MEDS ORDERED: POTASSIUM CHLORIDE 20 MEQ TAB PO ONE (05:05)
== END 2024-01-04 05:20 | disposition home or self-care (01) ==
LOC: ED 03:33
PROVIDERS: Internal Medicine
DX: K59.00 Constipation, unspecified (principal); E87.6 Hypokalemia; I11.0 Hypertensive heart disease with heart failure; I50.9 Heart failure, unspecified; I25.2 Old myocardial infarction; E11.9 Type 2 diabetes mellitus without complications; E78.5 Hyperlipidemia, unspecified; Z98.890 Other specified postprocedural states; F17.200 Nicotine dependence, unspecified, uncomplicated

== ENCOUNTER 2024-01-04 21:12 | Emergency (ER) | payer OTHER ==
[~2024-01-04] VITALS: Ht 182.8 cm; Wt 145.1 kg
[~2024-01-04 21:12] MED LIST changes: +CITROMA296 ML PO; +MIRALAX POWDER17 G1 PO
[2024-01-04 21:56] LABS: BASO # 0.1 10*3/uL (0.0-0.1); BASO % 0.6 % (0.0-1.0); EOS # 0.4 10*3/uL (0.0-0.4); EOS % 3.3 % (1.0-4.0); HEMATOCRIT 43.7 % (42.0-52.0); LYMPH # 0.9 10*3/uL (1.3-4.4); LYMPH % 8.2 % (27.0-41.0); MEAN CELL VOLUME 74.4 fl (80.0-94.0); MEAN CORPUSCULAR HGB CONC 28.1 g/dl (33.0-37.0); MEAN PLATELET VOLUME 9.7 fl (9.6-12.3); MONO # 0.5 10*3/uL (0.1-1.0); MONO % 4.5 % (3.0-9.0); NEUT % 83.2 % (47.0-73.0); PLATELET COUNT AUTOMATED 305 10*3/uL (130-400); RED BLOOD COUNT 5.87 10*6/uL (4.50-5.90); RED CELL DISTRI WIDTH 19.8 % (0-14.5); WHITE BLOOD COUNT 10.8 10*3/uL (4.8-10.8)
[2024-01-04 22:18] LABS: POTASSIUM 3.1 mmol/L (3.4-5.1); TOTAL PROTEIN 7.3 gm/dL (6.0-8.0)
[2024-01-04 22:24] LABS: ACT PARTIAL THROMBO TIME 31.1 SECONDS (20.0-32.1)
[2024-01-04 23:06] LABS: BILIRUBIN Negative (Negative); BLOOD Negative (Negative); CLARITY Clear (Clear); COLOR Yellow (Yellow); GLUCOSE Negative (Negative); KETONE Negative (Negative); LEUKO ESTERASE Negative (Negative); NITRITE Negative (Negative); PH 5.5 (4.5-8.0)
[2024-01-04] MEDS ORDERED: POTASSIUM CHLORIDE 20 MEQ TAB PO ONE (23:25)
[2024-01-05] MEDS ORDERED: QUETIAPINE FUMARATE 100 MG TAB PO ONE (00:35)
[2024-01-05] MEDS ORDERED: QUETIAPINE FUMARATE 100 MG TAB ONE (01:00)
== END 2024-01-05 00:30 | disposition home or self-care (01) ==
LOC: ED 21:12
PROVIDERS: Nurse Practitioner Family
DX: R10.11 Right upper quadrant pain (principal); R10.31 Right lower quadrant pain; K40.90 Unilateral inguinal hernia, without obstruction or gangrene, not specified as recurrent; D50.9 Iron deficiency anemia, unspecified; I13.0 Hypertensive heart and chronic kidney disease with heart failure and stage 1 through stage 4 chronic kidney disease, or unspecified chronic kidney disease; I50.9 Heart failure, unspecified; E11.22 Type 2 diabetes mellitus with diabetic chronic kidney disease; N18.30 Chronic kidney disease, stage 3 unspecified; I25.2 Old myocardial infarction; E78.5 Hyperlipidemia, unspecified; E66.9 Obesity, unspecified; Z86.73 Personal history of transient ischemic attack (TIA), and cerebral infarction without residual deficits; Z68.30 Body mass index [BMI] 30.0-30.9, adult; Z79.899 Other long term (current) drug therapy; I25.10 Atherosclerotic heart disease of native coronary artery without angina pectoris; K21.9 Gastro-esophageal reflux disease without esophagitis; Z98.890 Other specified postprocedural states; Z95.5 Presence of coronary angioplasty implant and graft; F17.200 Nicotine dependence, unspecified, uncomplicated

== ENCOUNTER 2024-01-10 16:04 | Emergency (ER) | payer OTHER ==
[~2024-01-10] VITALS: Ht 182.8 cm; Wt 145.1 kg
[2024-01-10] MEDS ORDERED: MAGNESIUM CITRATE 296 ML BOT PO ONE (17:55)
== END 2024-01-10 18:20 | disposition home or self-care (01) ==
LOC: ED 16:04
DX: K59.00 Constipation, unspecified (principal); I11.0 Hypertensive heart disease with heart failure; I50.9 Heart failure, unspecified; I25.2 Old myocardial infarction; E11.9 Type 2 diabetes mellitus without complications; E78.5 Hyperlipidemia, unspecified; Z98.890 Other specified postprocedural states; F17.200 Nicotine dependence, unspecified, uncomplicated

== ENCOUNTER 2024-01-11 16:09 | Emergency (ER) | payer OTHER ==
[~2024-01-11] VITALS: Ht 175.2 cm; Wt 129.3 kg
[2024-01-11 16:29] LABS: BASO # 0.1 10*3/uL (0.0-0.1); BASO % 0.9 % (0.0-1.0); EOS # 0.3 10*3/uL (0.0-0.4); EOS % 3.8 % (1.0-4.0); HEMATOCRIT 38.5 % (42.0-52.0); LYMPH # 0.6 10*3/uL (1.3-4.4); LYMPH % 8.7 % (27.0-41.0); MEAN CELL VOLUME 75.3 fl (80.0-94.0); MEAN CORPUSCULAR HGB 21.3 pg (27.0-31.0); MEAN CORPUSCULAR HGB CONC 28.3 g/dl (33.0-37.0); MEAN PLATELET VOLUME 10.1 fl (9.6-12.3); MONO # 0.4 10*3/uL (0.1-1.0); NEUT # 5.3 10*3/uL (2.3-7.9); NEUT % 80.1 % (47.0-73.0); PLATELET COUNT AUTOMATED 264 10*3/uL (130-400); RED BLOOD COUNT 5.11 10*6/uL (4.50-5.90); RED CELL DISTRI WIDTH 19.8 % (0-14.5); WHITE BLOOD COUNT 6.6 10*3/uL (4.8-10.8)
[2024-01-11 16:39] LABS: ACT PARTIAL THROMBO TIME 28.2 SECONDS (20.0-32.1)
[2024-01-11 16:51] LABS: POTASSIUM 3.8 mmol/L (3.4-5.1)
[2024-01-11] MEDS ORDERED: BUMETANIDE 1 MG/4 ML VIAL IV ONE (17:50)
== END 2024-01-11 18:05 | disposition left against medical advice (07) ==
LOC: ED 16:09
PROVIDERS: Internal Medicine
DX: R06.02 Shortness of breath (principal); Z53.29 Procedure and treatment not carried out because of patient's decision for other reasons; I11.0 Hypertensive heart disease with heart failure; I50.9 Heart failure, unspecified; I25.2 Old myocardial infarction; E11.9 Type 2 diabetes mellitus without complications; E78.5 Hyperlipidemia, unspecified; Z98.890 Other specified postprocedural states; F17.200 Nicotine dependence, unspecified, uncomplicated

== ENCOUNTER 2024-03-06 06:56 | Emergency (ER) | payer OTHER ==
[~2024-03-06] VITALS: Ht 182.8 cm; Wt 142.9 kg
[2024-03-06] MEDS ORDERED: Albuterol Sulf/Ipratropium 3 ML VIAL NEB ONE (08:05)
[2024-03-06] MEDS ORDERED: FUROSEMIDE 40 MG TAB PO ONE ×2 (08:05→09:10)
[2024-03-06] MEDS ORDERED: BISACODYL 5 MG TAB PO ONE (09:10)
[2024-03-06] MEDS ORDERED: KLOR-CON M2020 ME1 PO (11:01)
[2024-03-06] MEDS ORDERED: LASIX80 MG PO (11:01)
[2024-03-06] MEDS ORDERED: CRESTOR5 M1 PO (11:01)
[2024-03-06] MEDS ORDERED: TOPROL XL50 M1 PO (11:01)
[2024-03-06] MEDS ORDERED: IMDUR SA30 MG PO (11:01)
[2024-03-06] MEDS ORDERED: PROAIR RESPICL90 MCG INH (11:01)
[2024-03-06] MEDS ORDERED: ENTRESTO 49 MG1 EACH PO (11:01)
[2024-03-06] MEDS ORDERED: CORRECTOL5 M1 PO (11:01)
[2024-03-06] MEDS ORDERED: PLAVIX75 M1 PO (11:01)
== END 2024-03-06 12:36 | disposition home or self-care (01) ==
LOC: ED 06:56
DX: I11.0 Hypertensive heart disease with heart failure (principal); I50.9 Heart failure, unspecified; I25.2 Old myocardial infarction; E78.5 Hyperlipidemia, unspecified; E11.9 Type 2 diabetes mellitus without complications; F17.200 Nicotine dependence, unspecified, uncomplicated; Z98.890 Other specified postprocedural states

== ENCOUNTER 2024-05-12 00:30 | Emergency (ER) | payer OTHER ==
[~2024-05-12] VITALS: Ht 182.8 cm; Wt 143.0 kg
[~2024-05-12 00:30] MED LIST changes: +CORRECTOL5 M1 PO; +KLOR-CON M2020 ME1 PO; +LASIX80 MG PO; +PLAVIX75 M1 PO; +PROAIR RESPICL90 MCG INH
[2024-05-12 01:05] LABS: BASO # 0.1 10*3/uL (0.0-0.1); BASO % 1.2 % (0.0-1.0); EOS # 0.4 10*3/uL (0.0-0.4); EOS % 4.3 % (1.0-4.0); HEMATOCRIT 43.2 % (42.0-52.0); LYMPH # 1.1 10*3/uL (1.3-4.4); LYMPH % 10.8 % (27.0-41.0); MEAN CELL VOLUME 72.5 fl (80.0-94.0); MEAN CORPUSCULAR HGB 20.5 pg (27.0-31.0); MEAN CORPUSCULAR HGB CONC 28.2 g/dl (33.0-37.0); MEAN PLATELET VOLUME 9.6 fl (9.6-12.3); MONO # 0.6 10*3/uL (0.1-1.0); MONO % 6.1 % (3.0-9.0); NEUT # 7.7 10*3/uL (2.3-7.9); NEUT % 77.2 % (47.0-73.0); PLATELET COUNT AUTOMATED 293 10*3/uL (130-400); RED BLOOD COUNT 5.96 10*6/uL (4.50-5.90); RED CELL DISTRI WIDTH 21.4 % (0-14.5)
[2024-05-12 01:21] LABS: POTASSIUM 2.9 mmol/L (3.4-5.1); TOTAL PROTEIN 7.2 gm/dL (6.0-8.0)
[2024-05-12] MEDS ORDERED: POTASSIUM CHLORIDE 20 MEQ TAB PO ONE (02:15)
[2024-05-12] MEDS ORDERED: Ondansetron Hydrochloride 4 MG TAB SL ONE (03:50)
[2024-05-12] MEDS ORDERED: MORPHINE Sulfate 2 MG/ML SYR IM ONE (03:50)
== END 2024-05-12 06:41 | disposition home or self-care (01) ==
LOC: ED 00:30
PROVIDERS: Internal Medicine
DX: I24.9 Acute ischemic heart disease, unspecified (principal); R07.89 Other chest pain; E87.29 Other acidosis; R79.89 Other specified abnormal findings of blood chemistry; E87.6 Hypokalemia; E11.22 Type 2 diabetes mellitus with diabetic chronic kidney disease; I13.0 Hypertensive heart and chronic kidney disease with heart failure and stage 1 through stage 4 chronic kidney disease, or unspecified chronic kidney disease; N18.32 Chronic kidney disease, stage 3b; I50.9 Heart failure, unspecified; I25.2 Old myocardial infarction; E78.5 Hyperlipidemia, unspecified; D50.9 Iron deficiency anemia, unspecified; R42 Dizziness and giddiness; R06.02 Shortness of breath; F17.200 Nicotine dependence, unspecified, uncomplicated; Z98.890 Other specified postprocedural states; Z95.5 Presence of coronary angioplasty implant and graft

== ENCOUNTER 2024-05-17 03:58 | Emergency (ER) | payer OTHER ==
[~2024-05-17] VITALS: Ht 182.8 cm; Wt 142.9 kg
[2024-05-17 04:22] LABS: BASO # 0.1 10*3/uL (0.0-0.1); BASO % 1.1 % (0.0-1.0); EOS # 0.4 10*3/uL (0.0-0.4); EOS % 5.1 % (1.0-4.0); LYMPH # 1.1 10*3/uL (1.3-4.4); LYMPH % 14.2 % (27.0-41.0); MEAN CELL VOLUME 72.9 fl (80.0-94.0); MEAN CORPUSCULAR HGB 20.8 pg (27.0-31.0); MEAN CORPUSCULAR HGB CONC 28.6 g/dl (33.0-37.0); MEAN PLATELET VOLUME 9.6 fl (9.6-12.3); MONO # 0.5 10*3/uL (0.1-1.0); MONO % 6.7 % (3.0-9.0); NEUT # 5.7 10*3/uL (2.3-7.9); NEUT % 72.5 % (47.0-73.0); PLATELET COUNT AUTOMATED 276 10*3/uL (130-400); RED CELL DISTRI WIDTH 21.7 % (0-14.5); WHITE BLOOD COUNT 7.9 10*3/uL (4.8-10.8)
[2024-05-17 04:33] LABS: ACT PARTIAL THROMBO TIME 28.9 SECONDS (20.0-32.1)
[2024-05-17] MEDS ORDERED: Ondansetron Hydrochloride 4 MG TAB SL ONE (06:25)
[2024-05-17] MEDS ORDERED: MORPHINE Sulfate 2 MG/ML SYR IM ONE (06:25)
[2024-05-17] MEDS ORDERED: POTASSIUM CHLORIDE 20 MEQ TAB PO ONE (06:30)
== END 2024-05-17 06:51 | disposition home or self-care (01) ==
LOC: ED 03:58
PROVIDERS: Internal Medicine
DX: R07.89 Other chest pain (principal); R79.89 Other specified abnormal findings of blood chemistry; D50.9 Iron deficiency anemia, unspecified; N18.32 Chronic kidney disease, stage 3b; E87.6 Hypokalemia; I10 Essential (primary) hypertension; I25.10 Atherosclerotic heart disease of native coronary artery without angina pectoris; E78.5 Hyperlipidemia, unspecified; F17.200 Nicotine dependence, unspecified, uncomplicated; Z79.82 Long term (current) use of aspirin; Z79.899 Other long term (current) drug therapy; Z98.890 Other specified postprocedural states; Z95.5 Presence of coronary angioplasty implant and graft

== ENCOUNTER 2024-05-20 20:09 | Emergency (ER) | payer OTHER ==
[~2024-05-20] VITALS: Ht 182.8 cm; Wt 136.1 kg
== END 2024-05-20 21:53 | disposition home or self-care (01) ==
LOC: ED 20:09
DX: R07.89 Other chest pain (principal); R61 Generalized hyperhidrosis; R42 Dizziness and giddiness; R06.02 Shortness of breath; I50.9 Heart failure, unspecified; E87.6 Hypokalemia; D64.9 Anemia, unspecified; I25.10 Atherosclerotic heart disease of native coronary artery without angina pectoris; E11.22 Type 2 diabetes mellitus with diabetic chronic kidney disease; I13.0 Hypertensive heart and chronic kidney disease with heart failure and stage 1 through stage 4 chronic kidney disease, or unspecified chronic kidney disease; N18.32 Chronic kidney disease, stage 3b; K21.9 Gastro-esophageal reflux disease without esophagitis; I25.2 Old myocardial infarction; E78.5 Hyperlipidemia, unspecified; F17.200 Nicotine dependence, unspecified, uncomplicated; Z98.890 Other specified postprocedural states

== ENCOUNTER 2024-06-15 02:31 | Emergency (ER) | payer OTHER ==
[~2024-06-15] VITALS: Ht 182.8 cm; Wt 139.8 kg
[2024-06-15 02:54] LABS: BASO # 0.1 10*3/uL (0.0-0.1); BASO % 0.9 % (0.0-1.0); EOS # 0.4 10*3/uL (0.0-0.4); EOS % 3.8 % (1.0-4.0); HEMATOCRIT 39.4 % (42.0-52.0); LYMPH # 0.8 10*3/uL (1.3-4.4); LYMPH % 8.6 % (27.0-41.0); MEAN CELL VOLUME 75.2 fl (80.0-94.0); MEAN CORPUSCULAR HGB 21.4 pg (27.0-31.0); MEAN CORPUSCULAR HGB CONC 28.4 g/dl (33.0-37.0); MEAN PLATELET VOLUME 9.8 fl (9.6-12.3); MONO # 0.3 10*3/uL (0.1-1.0); MONO % 3.2 % (3.0-9.0); NEUT % 83.3 % (47.0-73.0); PLATELET COUNT AUTOMATED 287 10*3/uL (130-400); RED BLOOD COUNT 5.24 10*6/uL (4.50-5.90); RED CELL DISTRI WIDTH 22.1 % (0-14.5); WHITE BLOOD COUNT 9.7 10*3/uL (4.8-10.8)
[2024-06-15 03:16] LABS: TOTAL PROTEIN 7.4 gm/dL (6.0-8.0)
[2024-06-15] MEDS ORDERED: Promethazine Hydrochloride 25 MG/ML VIAL IM ONE (03:30)
[2024-06-15] MEDS ORDERED: MEPERIDINE HYDROCHLORIDE 25 MG/1 ML VIAL IM ONE (03:30)
[2024-06-15] MEDS ORDERED: HYDROmorphONE Hydrochloride 1 MG/ML SYR IM ONE (05:45)
[2024-06-15] MEDS ORDERED: POTASSIUM CHLORIDE 20 MEQ TAB PO ONE (05:50)
== END 2024-06-15 05:53 | disposition home or self-care (01) ==
LOC: ED 02:31
PROVIDERS: Internal Medicine
DX: R07.89 Other chest pain (principal); E87.6 Hypokalemia; R79.89 Other specified abnormal findings of blood chemistry; R10.84 Generalized abdominal pain; M54.50 Low back pain, unspecified; E11.22 Type 2 diabetes mellitus with diabetic chronic kidney disease; I12.9 Hypertensive chronic kidney disease with stage 1 through stage 4 chronic kidney disease, or unspecified chronic kidney disease; N18.32 Chronic kidney disease, stage 3b; G47.00 Insomnia, unspecified; I25.10 Atherosclerotic heart disease of native coronary artery without angina pectoris; E66.9 Obesity, unspecified; F17.210 Nicotine dependence, cigarettes, uncomplicated; Z79.82 Long term (current) use of aspirin; Z79.899 Other long term (current) drug therapy; Z98.890 Other specified postprocedural states; Z95.5 Presence of coronary angioplasty implant and graft; Z68.30 Body mass index [BMI] 30.0-30.9, adult

== ENCOUNTER 2024-06-18 03:02 | Emergency (ER) | payer OTHER ==
[~2024-06-18] VITALS: Ht 182.8 cm; Wt 138.3 kg
[2024-06-18 04:08] LABS: BASO # 0.1 10*3/uL (0.0-0.1); BASO % 1.1 % (0.0-1.0); EOS # 0.4 10*3/uL (0.0-0.4); EOS % 4.2 % (1.0-4.0); HEMATOCRIT 37.7 % (42.0-52.0); LYMPH # 0.8 10*3/uL (1.3-4.4); LYMPH % 9.5 % (27.0-41.0); MEAN CELL VOLUME 75.9 fl (80.0-94.0); MEAN CORPUSCULAR HGB 21.3 pg (27.0-31.0); MEAN CORPUSCULAR HGB CONC 28.1 g/dl (33.0-37.0); MEAN PLATELET VOLUME 9.5 fl (9.6-12.3); MONO # 0.5 10*3/uL (0.1-1.0); MONO % 5.7 % (3.0-9.0); NEUT # 6.7 10*3/uL (2.3-7.9); NUCLEATED RED BLOOD CELL 0.2 % (0.0-0.0); PLATELET COUNT AUTOMATED 247 10*3/uL (130-400); RED BLOOD COUNT 4.97 10*6/uL (4.50-5.90); RED CELL DISTRI WIDTH 21.8 % (0-14.5); WHITE BLOOD COUNT 8.4 10*3/uL (4.8-10.8)
[2024-06-18 04:20] LABS: ACT PARTIAL THROMBO TIME 28.5 SECONDS (20.0-32.1)
[2024-06-18 04:30] LABS: POTASSIUM 2.9 mmol/L (3.4-5.1); TOTAL PROTEIN 6.7 gm/dL (6.0-8.0)
[2024-06-18] MEDS ORDERED: POTASSIUM CHLORIDE 20 MEQ TAB PO ONE (04:35)
== END 2024-06-18 05:19 | disposition home or self-care (01) ==
LOC: ED 03:02
PROVIDERS: Internal Medicine
DX: R07.89 Other chest pain (principal); R06.02 Shortness of breath; I11.0 Hypertensive heart disease with heart failure; I50.9 Heart failure, unspecified; E11.9 Type 2 diabetes mellitus without complications; I25.2 Old myocardial infarction; E78.5 Hyperlipidemia, unspecified; F17.210 Nicotine dependence, cigarettes, uncomplicated; Z53.29 Procedure and treatment not carried out because of patient's decision for other reasons; Z98.890 Other specified postprocedural states

== ENCOUNTER 2024-06-20 22:14 | Emergency (ER) | payer OTHER ==
[~2024-06-20] VITALS: Ht 177.8 cm; Wt 136.7 kg
[2024-06-20 22:41] LABS: BASO # 0.1 10*3/uL (0.0-0.1); BASO % 0.9 % (0.0-1.0); EOS # 0.3 10*3/uL (0.0-0.4); EOS % 3.7 % (1.0-4.0); HEMATOCRIT 40.4 % (42.0-52.0); LYMPH # 0.9 10*3/uL (1.3-4.4); LYMPH % 10.7 % (27.0-41.0); MEAN CELL VOLUME 75.9 fl (80.0-94.0); MEAN CORPUSCULAR HGB 21.2 pg (27.0-31.0); MEAN PLATELET VOLUME 10.3 fl (9.6-12.3); MONO # 0.3 10*3/uL (0.1-1.0); MONO % 4.3 % (3.0-9.0); NEUT # 6.4 10*3/uL (2.3-7.9); PLATELET COUNT AUTOMATED 289 10*3/uL (130-400); RED BLOOD COUNT 5.32 10*6/uL (4.50-5.90); WHITE BLOOD COUNT 7.9 10*3/uL (4.8-10.8)
[2024-06-20] MEDS ORDERED: Ondansetron Hydrochloride 4 MG TAB SL ONE (23:05)
[2024-06-21] MEDS ORDERED: HYDROmorphONE Hydrochloride 1 MG/ML SYR IV ONE (01:25)
[2024-06-21] MEDS ORDERED: Ondansetron Hydrochloride 4 MG/2 ML VIAL IV ONE (01:25)
[2024-06-21 05:31] LABS: ETHYL ALCOHOL < 3.0 mg/dl (<3)
[2024-06-21] MEDS ORDERED: POTASSIUM CHLORIDE 20 MEQ TAB PO ONE (08:40)
== END 2024-06-21 09:57 | disposition home or self-care (01) ==
LOC: ED 22:14
PROVIDERS: Internal Medicine
DX: R10.9 Unspecified abdominal pain (principal); F43.21 Adjustment disorder with depressed mood; R07.89 Other chest pain; I11.0 Hypertensive heart disease with heart failure; I50.9 Heart failure, unspecified; I25.2 Old myocardial infarction; E11.9 Type 2 diabetes mellitus without complications; E78.5 Hyperlipidemia, unspecified; F17.210 Nicotine dependence, cigarettes, uncomplicated; Z98.890 Other specified postprocedural states

== ENCOUNTER 2024-06-25 02:15 | Emergency (ER) | payer OTHER ==
[~2024-06-25] VITALS: Ht 182.8 cm; Wt 133.8 kg
[2024-06-25 02:54] LABS: BASO # 0.1 10*3/uL (0.0-0.1); EOS # 0.3 10*3/uL (0.0-0.4); EOS % 4.6 % (1.0-4.0); HEMATOCRIT 36.4 % (42.0-52.0); LYMPH # 0.6 10*3/uL (1.3-4.4); LYMPH % 9.8 % (27.0-41.0); MEAN CORPUSCULAR HGB 21.1 pg (27.0-31.0); MEAN CORPUSCULAR HGB CONC 28.6 g/dl (33.0-37.0); MEAN PLATELET VOLUME 10.5 fl (9.6-12.3); MONO # 0.3 10*3/uL (0.1-1.0); NEUT # 4.8 10*3/uL (2.3-7.9); NEUT % 79.4 % (47.0-73.0); PLATELET COUNT AUTOMATED 231 10*3/uL (130-400); RED BLOOD COUNT 4.92 10*6/uL (4.50-5.90); RED CELL DISTRI WIDTH 21.1 % (0-14.5); WHITE BLOOD COUNT 6.1 10*3/uL (4.8-10.8)
[2024-06-25 03:16] LABS: POTASSIUM 2.6 mmol/L (3.4-5.1)
== END 2024-06-25 03:12 | disposition left against medical advice (07) ==
LOC: ED 02:15
PROVIDERS: Internal Medicine
DX: R07.89 Other chest pain (principal); I11.0 Hypertensive heart disease with heart failure; I50.9 Heart failure, unspecified; I25.2 Old myocardial infarction; E11.9 Type 2 diabetes mellitus without complications; E78.5 Hyperlipidemia, unspecified; F17.210 Nicotine dependence, cigarettes, uncomplicated; Z53.29 Procedure and treatment not carried out because of patient's decision for other reasons; Z98.890 Other specified postprocedural states

== ENCOUNTER 2024-07-05 01:46 | Emergency (ER) | payer OTHER ==
[2024-07-05] MEDS ORDERED: LORazepam 2 MG TAB PO ONE (02:15)
[2024-07-05 07:41] LABS: BASO # 0.1 10*3/uL (0.0-0.1); BASO % 1.2 % (0.0-1.0); EOS # 0.3 10*3/uL (0.0-0.4); HEMATOCRIT 38.3 % (42.0-52.0); LYMPH # 0.8 10*3/uL (1.3-4.4); LYMPH % 9.3 % (27.0-41.0); MEAN CELL VOLUME 76.4 fl (80.0-94.0); MEAN CORPUSCULAR HGB 21.2 pg (27.0-31.0); MEAN CORPUSCULAR HGB CONC 27.7 g/dl (33.0-37.0); MEAN PLATELET VOLUME 10.6 fl (9.6-12.3); MONO # 0.4 10*3/uL (0.1-1.0); MONO % 4.3 % (3.0-9.0); NEUT % 81.7 % (47.0-73.0); PLATELET COUNT AUTOMATED 259 10*3/uL (130-400); RED BLOOD COUNT 5.01 10*6/uL (4.50-5.90); RED CELL DISTRI WIDTH 21.4 % (0-14.5); WHITE BLOOD COUNT 8.6 10*3/uL (4.8-10.8)
[2024-07-05 08:37] LABS: ALKALINE PHOSPHATASE 57 U/L (46-116); BUN 39 mg/dl (9-23); CHLORIDE 104 mmol/L (98-107); CPK 114 U/L (34-171); POTASSIUM 3.4 mmol/L (3.4-5.1); SGPT/ALT 36 U/L (5-49)
[2024-07-05 08:51] LABS: ETHYL ALCOHOL < 3.0 mg/dl (<3)
== END 2024-07-05 08:16 | disposition left against medical advice (07) ==
LOC: ED 01:46
PROVIDERS: Internal Medicine
DX: G47.00 Insomnia, unspecified (principal); I11.0 Hypertensive heart disease with heart failure; I50.9 Heart failure, unspecified; I25.2 Old myocardial infarction; E11.9 Type 2 diabetes mellitus without complications; E78.5 Hyperlipidemia, unspecified; F17.210 Nicotine dependence, cigarettes, uncomplicated; Z98.890 Other specified postprocedural states; Z53.29 Procedure and treatment not carried out because of patient's decision for other reasons

== ENCOUNTER 2024-07-05 21:29 | Inpatient (IN) | payer OTHER ==
[~2024-07-05] VITALS: Ht 182.8 cm; Wt 138.3 kg
[2024-07-05 21:51] VITALS: BP 137/106
[2024-07-05 22:19] LABS: BASO # 0.1 10*3/uL (0.0-0.1); BASO % 1.1 % (0.0-1.0); EOS # 0.3 10*3/uL (0.0-0.4); EOS % 3.2 % (1.0-4.0); HEMATOCRIT 37.9 % (42.0-52.0); LYMPH # 0.7 10*3/uL (1.3-4.4); LYMPH % 8.7 % (27.0-41.0); MEAN CELL VOLUME 75.6 fl (80.0-94.0); MEAN CORPUSCULAR HGB 21.2 pg (27.0-31.0); MEAN PLATELET VOLUME 10.5 fl (9.6-12.3); MONO # 0.4 10*3/uL (0.1-1.0); MONO % 4.3 % (3.0-9.0); NEUT # 6.7 10*3/uL (2.3-7.9); NEUT % 82.3 % (47.0-73.0); PLATELET COUNT AUTOMATED 268 10*3/uL (130-400); RED BLOOD COUNT 5.01 10*6/uL (4.50-5.90); RED CELL DISTRI WIDTH 21.6 % (0-14.5); WHITE BLOOD COUNT 8.1 10*3/uL (4.8-10.8)
[2024-07-05 22:41] LABS: POTASSIUM 3.1 mmol/L (3.4-5.1)
[2024-07-05] MEDS ORDERED: BUMETANIDE 1 MG/4 ML VIAL IV ONE (23:30)
[2024-07-06] MEDS ORDERED: HYDROmorphONE Hydrochloride 1 MG/ML SYR IV ONE (00:10)
[2024-07-06 00:44] VITALS: BP 130/100
[2024-07-06] MEDS ORDERED: POTASSIUM CHLORIDE 20 MEQ TAB PO ONE (00:45)
[2024-07-06] MEDS ORDERED: Ondansetron Hydrochloride 4 MG/2 ML VIAL IV ONE (00:45)
[2024-07-06] MEDS ORDERED: MORPHINE Sulfate 2 MG/ML SYR IV PRN (01:55)
[2024-07-06] MEDS ORDERED: ACETAMINOPHEN 650 MG SUPP R PRN (01:55)
[2024-07-06] MEDS ORDERED: BISACODYL 5 MG TAB PO PRN (01:55)
[2024-07-06] MEDS ORDERED: BISACODYL 10 MG SUPP R PRN (01:55)
[2024-07-06] MEDS ORDERED: ACETAMINOPHEN 325 MG TAB PO PRN (01:55)
[2024-07-06] MEDS ORDERED: Magnesium Hydroxide 30 ML UDC PO PRN (01:55)
[2024-07-06] MEDS ORDERED: Acetaminophen/Hydrocodone 5 MG/325 MG TABLET PO PRN (01:55)
[2024-07-06] MEDS ORDERED: Ondansetron Hydrochloride 4 MG/2 ML VIAL IV PRN (01:55)
[2024-07-06 02:23] LABS: BASO # 0.2 10*3/uL (0.0-0.1); BASO % 1.8 % (0.0-1.0); EOS # 0.3 10*3/uL (0.0-0.4); EOS % 3.9 % (1.0-4.0); HEMATOCRIT 41.2 % (42.0-52.0); LYMPH # 1.2 10*3/uL (1.3-4.4); LYMPH % 14.2 % (27.0-41.0); MEAN CELL VOLUME 77.2 fl (80.0-94.0); MEAN CORPUSCULAR HGB 21.2 pg (27.0-31.0); MEAN CORPUSCULAR HGB CONC 27.4 g/dl (33.0-37.0); MEAN PLATELET VOLUME 10.5 fl (9.6-12.3); MONO # 0.6 10*3/uL (0.1-1.0); MONO % 7.3 % (3.0-9.0); NEUT # 6.1 10*3/uL (2.3-7.9); NEUT % 72.4 % (47.0-73.0); PLATELET COUNT AUTOMATED 323 10*3/uL (130-400); RED BLOOD COUNT 5.34 10*6/uL (4.50-5.90); RED CELL DISTRI WIDTH 21.7 % (0-14.5); WHITE BLOOD COUNT 8.4 10*3/uL (4.8-10.8)
[2024-07-06] MEDS ORDERED: HEPARIN SODIUM 250 ML IV SCH (02:45)
[2024-07-06 02:49] LABS: POTASSIUM 3.8 mmol/L (3.4-5.1); TOTAL PROTEIN 7.7 gm/dL (6.0-8.0)
[2024-07-06] MEDS ORDERED: hydrOXYzine pamoate 25 MG CAP PO ONE (02:50)
[2024-07-06 03:37] VITALS: BP 112/79
[2024-07-06] MEDS ORDERED: FUROSEMIDE 40 MG/4 ML VIAL IV SCH ×2 (06:00→10:00)
[2024-07-06 06:37] VITALS: BP 121/82
[2024-07-06 08:00] VITALS: BP 122/88
[2024-07-06] MEDS ORDERED: METOPROLOL SUCCINATE XR 50 MG TAB PO SCH (10:00)
[2024-07-06] MEDS ORDERED: ASPIRIN ENTERIC COATED 81 MG TAB PO SCH (10:00)
[2024-07-06 12:00] VITALS: BP 122/90
[2024-07-06] MEDS ORDERED: ATORVASTATIN CALCIUM 20 MG TAB PO SCH (22:00)
== END 2024-07-06 16:12 | disposition left against medical advice (07) | DRG 194 ==
LOC: ED 21:29 → EDHOLD 07-06 01:05
PROVIDERS: Emergency Medicine; Student in an Organized Health Care Education/Training Program; ADMIT Internal Medicine; ATTEND Internal Medicine
DX: I13.0 Hypertensive heart and chronic kidney disease with heart failure and stage 1 through stage 4 chronic kidney disease, or unspecified chronic kidney disease (principal); I21.4 Non-ST elevation (NSTEMI) myocardial infarction; N17.0 Acute kidney failure with tubular necrosis; R17 Unspecified jaundice; E11.22 Type 2 diabetes mellitus with diabetic chronic kidney disease; K21.9 Gastro-esophageal reflux disease without esophagitis; F17.210 Nicotine dependence, cigarettes, uncomplicated; N18.32 Chronic kidney disease, stage 3b; Z53.29 Procedure and treatment not carried out because of patient's decision for other reasons; E87.6 Hypokalemia; D50.9 Iron deficiency anemia, unspecified; G47.33 Obstructive sleep apnea (adult) (pediatric); I25.110 Atherosclerotic heart disease of native coronary artery with unstable angina pectoris; E11.65 Type 2 diabetes mellitus with hyperglycemia; I25.5 Ischemic cardiomyopathy; E78.2 Mixed hyperlipidemia; I50.23 Acute on chronic systolic (congestive) heart failure; Z80.51 Family history of malignant neoplasm of kidney; Z83.3 Family history of diabetes mellitus; Z82.49 Family history of ischemic heart disease and other diseases of the circulatory system; Z80.1 Family history of malignant neoplasm of trachea, bronchus and lung; Z86.73 Personal history of transient ischemic attack (TIA), and cerebral infarction without residual deficits; Z95.5 Presence of coronary angioplasty implant and graft; I25.2 Old myocardial infarction

== ENCOUNTER 2024-07-11 02:20 | Emergency (ER) | payer OTHER ==
[2024-07-11 03:49] LABS: BASO # 0.1 10*3/uL (0.0-0.1); BASO % 0.9 % (0.0-1.0); EOS # 0.3 10*3/uL (0.0-0.4); HEMATOCRIT 39.3 % (42.0-52.0); LYMPH # 0.6 10*3/uL (1.3-4.4); LYMPH % 8.6 % (27.0-41.0); MEAN CELL VOLUME 75.6 fl (80.0-94.0); MEAN CORPUSCULAR HGB 20.6 pg (27.0-31.0); MEAN CORPUSCULAR HGB CONC 27.2 g/dl (33.0-37.0); MONO # 0.4 10*3/uL (0.1-1.0); MONO % 5.9 % (3.0-9.0); NEUT # 5.4 10*3/uL (2.3-7.9); NEUT % 80.3 % (47.0-73.0); PLATELET COUNT AUTOMATED 240 10*3/uL (130-400); RED CELL DISTRI WIDTH 21.2 % (0-14.5); WHITE BLOOD COUNT 6.8 10*3/uL (4.8-10.8)
[2024-07-11] MEDS ORDERED: POTASSIUM CHLORIDE 20 MEQ TAB PO ONE (08:40)
== END 2024-07-11 08:50 | disposition home or self-care (01) ==
LOC: ED 02:20
PROVIDERS: Emergency Medicine
DX: E11.22 Type 2 diabetes mellitus with diabetic chronic kidney disease (principal); I13.0 Hypertensive heart and chronic kidney disease with heart failure and stage 1 through stage 4 chronic kidney disease, or unspecified chronic kidney disease; N18.9 Chronic kidney disease, unspecified; I50.9 Heart failure, unspecified; R79.89 Other specified abnormal findings of blood chemistry; E78.5 Hyperlipidemia, unspecified; F17.200 Nicotine dependence, unspecified, uncomplicated; Z98.890 Other specified postprocedural states